=== PATIENT | female | born 1965 | race African-American/Black ===

== ENCOUNTER 2016-10-16 15:23 | Inpatient (IN) | payer MEDICAID ==
[2016-10-16] MEDS ORDERED: ONDANSETRON HCL INJ/PF 4 MG/2 ML SDV ONE (19:07)
--- NOTE | 2016-10-16 20:24 | ER Document Report ---
ED General - General Mode of Arrival: Medic Information source: Relative TRAVEL OUTSIDE OF THE [place] IN LAST 30 DAYS: No - HPI Onset: Other - see HPI notes Similar symptoms previously: No Recently seen / treated by doctor: No <VERENA BILLINGS - Last Filed: 10/17/16 04:08> <SABRA NEGRO - Last Filed: 10/17/16 04:15> - General Chief Complaint: Altered Mental Status Time Seen by Provider: 10/16/16 20:15 Notes: Patient is a 51 year old female presenting to the emergency department for altered mental status, lack of appetite and weakness. Patient has a history of colon cancer with a colostomy, type II diabetes mellitus, hypertension, and poor cognition. Patient's family state that the patient has not been able to eat well and has some yellowing of her eyes. Family is also concerned that the patient is very dehydrated. Patient has not been eating, drinking or able to take her meds for about 2 weeks. Patient had a bowel obstruction repair with her colostomy placed on 08/12/16 in [place]. Patient has since moved down here to be closer to family and she sees Dr. Burnham as her primary physician. Patient has been evaluated by Dr. Dangelo today who was also going to get in touch with Dr. Burnham as well. Patient is a FULL CODE and resides at [facility]. (VERENA BILLINGS) - Related Data Allergies/Adverse Reactions: No Known Allergies Allergy (Verified 10/16/16 23:59) Home Medications: Current Home Medications Aspirin [Aspirin 81 mg Chewable Tablet] 81 mg PO DAILY 10/17/16 [History] Diphenhydramine HCl [Benadryl 50 mg Capsule] 50 mg PO QPM PRN 10/17/16 [History] Divalproex Sodium [Depakote Er 250 Mg Tablet] 250 mg PO BID 10/17/16 [History] Ibuprofen 600 mg PO BID PRN 10/17/16 [History] Lurasidone HCl [Latuda] 80 mg PO Q12H 10/17/16 [History] Past Medical History - General Information source: Patient - Social History Smoking Status: Unknown if Ever Smoked Family History: None Patient has suicidal ideation: No Patient has homicidal ideation: No - Past Medical History Cardiac Medical History: Reports: Hx Hypertension Endocrine Medical History: Reports: Hx Diabetes Mellitus Type 2 Malignancy Medical History: Reports: Other - colon cancer with metastasis to the lung Musculoskeltal Medical History: Reports Other - chronic lower extremity edema Psychiatric Medical History: Reports: Hx Anxiety, Hx Depression, Hx Schizophrenia, Other - poor cognition Surgical Hx: Negative Past Surgical History: Reports: Hx Abdominal Surgery - bowel obstruction 08/12/16 , Hx Colostomy - 08/12/16 <VERENA BILLINGS - Last Filed: 10/17/16 04:08> Review of Systems - Review of Systems Constitutional: See HPI, Weakness EENT: See HPI Cardiovascular: No symptoms reported Respiratory: No symptoms reported Gastrointestinal: See HPI, Poor appetite, Poor fluid intake Genitourinary: No symptoms reported Female Genitourinary: No symptoms reported Musculoskeletal: No symptoms reported Skin: No symptoms reported Hematologic/Lymphatic: No symptoms reported Neurological/Psychological: See HPI, Weakness -: Yes All other systems reviewed and negative <VERENA BILLINGS - Last Filed: 10/17/16 04:08> Physical Exam - Vital signs Interpretation: Hypotensive - General General appearance: Alert, Other - appears icteric In distress: Mild - HEENT Head: Normocephalic, Atraumatic Eyes: Scleral icterus Pupils: PERRL Mucous membranes: Dry - Respiratory Respiratory status: No respiratory distress Chest status: Nontender Breath sounds: Normal Chest palpation: Normal - Cardiovascular Rhythm: Regular Heart sounds: Normal auscultation Murmur: No - Abdominal Inspection: Other - colostomy bag in place with output Distension: No distension Bowel sounds: Normal Tenderness: Nontender Organomegaly: No organomegaly - Back Back: Normal, Nontender - Extremities General upper extremity: Normal inspection, Normal ROM, Normal strength General lower extremity: Normal inspection, Normal ROM, Normal strength - Neurological Neuro grossly intact: Yes - slow to respond but at baseline Cognition: Normal Orientation: AAOx4 [place] Coma Scale Eye Opening: Spontaneous [place] Coma Scale Verbal: Oriented [place] Coma Scale Motor: Obeys Commands [place] Coma Scale Total: 15 - Skin Skin Temperature: Warm Skin Moisture: Dry <VERENA BILLINGS - Last Filed: 10/17/16 04:08> <SABRA NEGRO - Last Filed: 10/17/16 04:15> - Vital signs Vitals: Pulse Resp BP Pulse Ox 98 15 102/62 99 10/16/16 22:15 10/16/16 22:15 10/16/16 22:15 10/16/16 22:15 Temperature: 97.2 F Pulse: 90 Blood Pressure: 122/80 O2 Saturation: 98% RA Blood Glucose Level: 89 (VERENA BILLINGS) Course - Laboratory Result Diagrams: 10/16/16 18:30 10/16/16 18:30 - Consults Dr. Burnham Time consulted: 21:49 Consulted provider: will come to ER <VERENA BILLINGS - Last Filed: 10/17/16 04:08> - Laboratory Result Diagrams: 10/16/16 18:30 10/16/16 18:30 - Diagnostic Test Radiology reviewed: Image reviewed, Reports reviewed <SABRA NEGRO - Last Filed: 10/17/16 04:15> - Re-evaluation Re-evalutation: 10/16 Patient was discussed with Dr. Phan. Patient is hyperkalemic. Patient has acute renal failure and also elevated liver enzymes. Patient appears to be in multisystem organ failure and is likely not going to do well due to her underlying disease state. Dr. Phan at bedside. He has discussed the patient at length with the family and they have decided to make her DNR/DNI. Patient will be admitted. She is in fair condition at this time. (SABRA NEGRO) - Vital Signs Vital signs: Temp Pulse Resp BP Pulse Ox 93 14 98/71 L 100 10/17/16 03:13 10/17/16 00:04 10/17/16 00:04 10/17/16 00:04 - Laboratory Laboratory results interpreted by me: Normal coags. (VERENA BILLINGS) - Consults Dr. Burnham Reason for consultation: 10/16/16 21:[address] Burnham to discuss patient; he will come to the ED to evaluated and talk to patient/family. 10/16/16 22:20 Dr. Burnham is present in the department, he has talked with the family and the patient will be admitted. (VERENA BILLINGS) Critical Care Note - Critical Care Note Total time excluding time spent on procedures (mins): 45 - Dilatation and management of hypotension, hyperkalemia, multiple re-evaluations, counseling of family, coordination of admission <SABRA NEGRO - Last Filed: 10/17/16 04:15> Discharge <VERENA BILLINGS - Last Filed: 10/17/16 04:08> - Discharge Admitting Provider: [facility] Unit Admitted: Telemetry <SABRA NEGRO - Last Filed: 10/17/16 04:15> - Discharge Clinical Impression: Hyperkalemia, Multisystem organ failure Colon cancer Qualifiers: Colon location: unspecified part of colon Qualified Code(s): C18.9 - Malignant neoplasm of colon, unspecified Condition: Fair Disposition: ADMITTED INPATIENT Scribe Attestation: 10/17/16 04:15 I personally performed the services described in the documentation, reviewed and edited the documentation which was dictated to the scribe in my presence, and it accurately records my words and actions. (SABRA NEGRO) Scribe Documentation - Scribe Written by Scribe:: Sebastian Prince 10/16/16 21:17 acting as scribe for :: Niharika <VERENA BILLINGS - Last Filed: 10/17/16 04:08>
[2016-10-16] MEDS ORDERED: NORMAL SALINE 1000 ML 1,000 ML IV ONE (21:18)
[2016-10-16] MEDS ORDERED: DEXTROSE 50%-WATER 25 GM/50 ML DISP.SYRIN IV ONE (21:44)
[2016-10-16] MEDS ORDERED: INSULIN REG, HUMAN 100 UNIT/ML 3 ML VIAL (PYX) IV ONE (21:44)
[2016-10-16] MEDS ORDERED: CALCIUM GLUCONATE 1000 MG/10 ML INJ IV ONE (21:44)
[2016-10-17 00:26] LABS: THYROID STIMULATING HORMONE 3.25 uIU/mL (0.47-4.68)
[2016-10-17] MEDS ORDERED: DULOXETINE HCL 30 MG CAPSULE.DR PO ONE (05:15)
[2016-10-17 05:18] LABS: ALANINE AMINOTRANSFERASE 83 U/L (9-52); ALBUMIN 2.7 g/dL (3.5-5.0); ALKALINE PHOSPHATASE 630 U/L (38-126); ANION GAP 19 (5-19); ASPARTATE AMINO TRANSFERASE 279 U/L (14-36); BILIRUBIN,DIRECT 7.3 mg/dL (0.0-0.4); BILIRUBIN,TOTAL 8.2 mg/dL (0.2-1.3); CARBON DIOXIDE 14 mmol/L (22-30); CHLORIDE 95 mmol/L (98-107); GLUCOSE 139 mg/dL (75-110); POTASSIUM 5.3 mmol/L (3.6-5.0); SODIUM 128.1 mmol/L (137-145); TOTAL PROTEIN 7.5 g/dL (6.3-8.2)
[2016-10-17 05:28] LABS: CREATININE RESULT 3.19 mg/dL (0.52-1.25)
[2016-10-17 05:30] LABS: BLOOD UREA NITROGEN 137 mg/dL (7-20)
[2016-10-17] MEDS ORDERED: DULOXETINE HCL 20 MG CAPSULE.DR PO ONE ×2 (05:30→06:12)
[2016-10-17 05:40] LABS: HEMATOCRIT 35.8 % (36.0-47.0); HEMOGLOBIN 11.2 g/dL (12.0-15.5); HGB HCT DIFFERENCE -2.2; MEAN CORPUSCULAR HEMOGLOBIN 27.8 pg (27.0-33.4); MEAN CORPUSCULAR HGB CONC 31.4 g/dL (32.0-36.0); MEAN CORPUSCULAR VOLUME 88 fl (80-97); RED BLOOD COUNT 4.05 10^6/uL (3.72-5.28); RED CELL DISTRIBUTION WIDTH 22.4 % (11.5-14.0); WHITE BLOOD COUNT 16.3 10^3/uL (4.0-10.5)
[2016-10-17 05:44] LABS: BAND NEUTROPHILS % (MANUAL) 5 % (3-5); BASOPHILS % (MANUAL) 0 % (0-2); EOSINOPHILS % (MANUAL) 0 % (0-6); LYMPHOCYTES % (MANUAL) 7 % (13-45); TOTAL CELLS COUNTED 100
[2016-10-17 05:50] LABS: ANISOCYTOSIS 3+; BURR CELLS SLIGHT; OVALOCYTES SLIGHT; POIKILOCYTOSIS SLIGHT; SCHISTOCYTES SLIGHT; TARGET CELLS SLIGHT; TOXIC GRANULATION SLIGHT
[2016-10-17] MEDS: HEPARIN SOD (PORCINE) 5,000 UNIT/ML 1 ML SYRINGE SUBCUT SCH ×3 (06:32→21:02)
[2016-10-17 09:00] LABS: HEMATOCRIT 40.4 % (36.0-47.0); HEMOGLOBIN 12.9 g/dL (12.0-15.5); HGB HCT DIFFERENCE -1.7; MEAN CORPUSCULAR HEMOGLOBIN 28.2 pg (27.0-33.4); MEAN CORPUSCULAR HGB CONC 31.8 g/dL (32.0-36.0); MEAN CORPUSCULAR VOLUME 89 fl (80-97); RED BLOOD COUNT 4.56 10^6/uL (3.72-5.28); RED CELL DISTRIBUTION WIDTH 22.7 % (11.5-14.0); WHITE BLOOD COUNT 13.8 10^3/uL (4.0-10.5)
[2016-10-17 09:01] LABS: ANISOCYTOSIS 3+; BAND NEUTROPHILS % (MANUAL) 1 % (3-5); BASOPHILS % (MANUAL) 0 % (0-2); BURR CELLS 1+; EOSINOPHILS % (MANUAL) 1 % (0-6); LYMPHOCYTES % (MANUAL) 5 % (13-45); OVALOCYTES SLIGHT; POIKILOCYTOSIS 1+; TARGET CELLS 1+; TOTAL CELLS COUNTED 100
[2016-10-17 09:02] LABS: PLATELET CLUMPS PRESENT; POLYCHROMASIA SLIGHT
[2016-10-17] MEDS ORDERED: DEXTROSE 50%-WATER 25 GM/50 ML DISP.SYRIN IV PRN ×2 (11:03)
[2016-10-17] MEDS ORDERED: GLUCAGON,HUMAN RECOMB 1 MG INJ SUBCUT PRN (11:03)
[2016-10-17] MEDS ORDERED: DEXTROSE 40% GEL 15 GM TUBE PO PRN ×2 (11:03)
--- NOTE | 2016-10-17 11:14 | PDOC CONSULTATION ---
Consultation Consult Date: 10/17/16 Consult reason:: Evaluate for feeding tube History of Present Illness Admission Date/PCP: 10/16/16 22:40 ADIS PEARCE MD History of Present Illness: POORNIMA MISHRA is a 51 year old female with widely metastatic colon cancer status post colostomy 2 months ago. Now presenting with failure to thrive with poor appetite and severe dehydration. Oncology does not think that she is fit for chemotherapy. Family requests that a feeding tube for nutritional support. They do not wish to pursue only comfort measures at this time. Past Medical History Cardiac Medical History: Reports: Hypertension Endocrine Medical History: Reports: Diabetes Mellitus Type 2 Malignancy Medical History: Reports: Other - colon cancer with metastasis to the lung Musculoskeltal Medical History: Reports: Other - chronic lower extremity edema Psychiatric Medical History: Reports: Depression, Other - poor cognition Past Surgical History Past Surgical History: Reports: Colostomy - 08/12/16 Social History Smoking Status: Unknown if Ever Smoked Frequency of Alcohol Use: None Hx Recreational Drug Use: No Drugs: None Hx Prescription Drug Abuse: No Family History Family History: None Parental Family History Reviewed: No Children Family History Reviewed: No Sibling(s) Family History Reviewed.: No Medication/Allergy Home Medications: Aspirin [Aspirin 81 mg Chewable Tablet] 81 mg PO DAILY 10/17/16 Diphenhydramine HCl [Benadryl 50 mg Capsule] 50 mg PO HSP PRN 10/17/16 Divalproex Sodium 250 mg PO BID 10/17/16 Ibuprofen 600 mg PO BID 10/17/16 Lurasidone HCl [Latuda] 80 mg PO Q12 10/17/16 Allergies/Adverse Reactions: No Known Allergies Allergy (Verified 10/16/16 23:59) Physical Exam Vital Signs: Temp Pulse Resp BP Pulse Ox 97.3 F 89 16 103/56 L 100 10/17/16 08:00 10/17/16 08:00 10/17/16 08:00 10/17/16 08:00 10/17/16 08:00 Intake & Output 10/16/16 10/17/16 10/18/16 06:59 06:59 06:59 Intake Total 10 Balance 10 Weight 78.3 kg General appearance: PRESENT: no acute distress, other - Does not speak. Somewhat follows commands. Lethargic but arousable. Respiratory exam: PRESENT: decreased breath sounds - At bases. Cardiovascular exam: PRESENT: RRR GI/Abdominal exam: PRESENT: other - Firm mildly distended with ostomy that appears to be functioning well with stool and air in the colostomy bag. Diffuse abdominal tenderness without peritoneal signs. Firmness across her upper abdomen consistent with massive hepatomegaly. Results Laboratory Results: 10/17/16 04:45 10/17/16 04:45 10/16/16 10/16/16 10/17/16 23:04 23:04 04:45 WBC 16.3 H RBC 4.05 Hgb 11.2 L Hct 35.8 L MCV 88 MCH 27.8 MCHC 31.4 L RDW 22.4 H Plt Count 223 Seg Neutrophils % Not Reportable Lymphocytes % Not Reportable Monocytes % Not Reportable Eosinophils % Not Reportable Basophils % Not Reportable Absolute Neutrophils Not Reportable Absolute Lymphocytes Not Reportable Absolute Monocytes Not Reportable Absolute Eosinophils Not Reportable Absolute Basophils Not Reportable Sodium Potassium Chloride Carbon Dioxide Anion Gap BUN Creatinine Est GFR ( Amer) Est GFR (Non-Af Amer) Glucose Calcium Total Bilirubin AST ALT Alkaline Phosphatase Total Protein Albumin TSH 3.25 Free T4 1.53 Blood Type O POSITIVE Antibody Screen NEGATIVE 10/17/16 04:45 WBC RBC Hgb Hct MCV MCH MCHC RDW Plt Count Seg Neutrophils % Lymphocytes % Monocytes % Eosinophils % Basophils % Absolute Neutrophils Absolute Lymphocytes Absolute Monocytes Absolute Eosinophils Absolute Basophils Sodium 128.1 L Potassium 5.3 H Chloride 95 L Carbon Dioxide 14 L Anion Gap 19 BUN 137 H Creatinine 3.19 H Est GFR ( Amer) 18 L Est GFR (Non-Af Amer) 15 L Glucose 139 H Calcium 9.0 Total Bilirubin 8.2 H AST 279 H ALT 83 H Alkaline Phosphatase 630 H Total Protein 7.5 Albumin 2.7 L TSH Free T4 Blood Type Antibody Screen 10/17/16 00:46 Troponin I 0.024 Impressions: Chest X-Ray 10/16/16 20:15 IMPRESSION: Bilateral mass lesions as noted above suspicious for metastatic disease. Other findings as noted above Assessment & Plan - Diagnosis (1) Colon cancer Qualifiers: Colon location: unspecified part of colon Qualified Code(s): C18.9 - Malignant neoplasm of colon, unspecified Is this a current diagnosis for this admission?: YesPlan: Stage IV colon cancer with failure to thrive. Patient's family request feeding tube. Will obtain a abdominal pelvic CT scan to better assess the extent of her intra-abdominal disease before consideration of a feeding tube. Hospice care has not been started but may be very appropriate in this patient. Patient' s family not wanting to consider pure comfort measures only at this time. In the meantime will place her on IV fluids, recheck labs. Will place her on IV fluids. Patient is severely dehydrated.
[2016-10-17 11:36] LABS: PROTHROMBIN TIME 17.4 SEC (11.4-15.4)
[2016-10-17] MEDS ORDERED: NORMAL SALINE 500 ML IV PRN (12:25)
[2016-10-17 13:48] LABS: AMORPHOUS SEDIMENT,URINE TRACE /HPF; APPEARANCE,URINE CLOUDY; BILIRUBIN,URINE SMALL (NEGATIVE); GLUCOSE, URINE NEGATIVE (NEGATIVE); KETONES,URINE NEGATIVE (NEGATIVE); LEUKOCYTE ESTERASE,URINE NEGATIVE (NEGATIVE); NITRITE,URINE NEGATIVE (NEGATIVE); PROTEIN,URINE 100 mg/dL (NEGATIVE); URINE SPECIFIC GRAVITY 1.012
[2016-10-17] MEDS: NORMAL SALINE 1000 ML 1,000 ML IV PRN (14:35)
[2016-10-17 14:58] LABS: CREATINE KINASE MB 1.32 ng/mL (<4.55); TROPONIN I 0.024 ng/mL
[2016-10-17 14:59] LABS: BLOOD UREA NITROGEN 144 mg/dL (7-20); CALCIUM 9.5 mg/dL (8.4-10.2); GLUCOSE 90 mg/dL (75-110)
[2016-10-17 15:00] LABS: CREATININE RESULT 3.72 mg/dL (0.52-1.25)
[2016-10-17 15:01] LABS: CARBON DIOXIDE 16 mmol/L (22-30); CHLORIDE 90 mmol/L (98-107); POTASSIUM 6.2 mmol/L (3.6-5.0); SODIUM 126.4 mmol/L (137-145)
[2016-10-17 15:03] LABS: ALANINE AMINOTRANSFERASE 96 U/L (9-52); ALBUMIN 3.3 g/dL (3.5-5.0); ALKALINE PHOSPHATASE 825 U/L (38-126); ANION GAP 20 (5-19); ASPARTATE AMINO TRANSFERASE 331 U/L (14-36); BILIRUBIN,DIRECT 7.9 mg/dL (0.0-0.4); BILIRUBIN,TOTAL 8.9 mg/dL (0.2-1.3); TOTAL PROTEIN 8.7 g/dL (6.3-8.2)
[2016-10-17 15:04] LABS: CREATINE KINASE 347 U/L (30-135)
--- NOTE | 2016-10-17 19:35 | PDOC H&P ---
History of Present Illness Admission Date/PCP: 10/16/16 22:40 ADIS PEARCE MD History of Present Illness: He is a 51-year-old with stage IV colon cancer, with metastases involving the lungs, she recently had a colectomy with colostomy bag in place she was transferred from the hospital to [facility] for rehabilitation patient is not able to communicate effectively, she has not been eating, attempt was made by family to have PEG tube inserted but GI felt that because of the enlarged liver due to metastatic disease PEG tube could not be placed. In the emergency room she was evaluated she was found to have acute kidney failure with hyperkalemia and hyponatremia. I had a long discussion with the patient father and brother about prognosis, she has a very poor prognosis I advised the family that patient should be DO NOT RESUSCITATE status the family is in agreement. Family wants patient to have a feeding tube inserted by the surgeon. I suggested hospice option to this family but I did not get any response from the family. Past Medical History Cardiac Medical History: Reports: Hypertension Endocrine Medical History: Reports: Diabetes Mellitus Type 2 Malignancy Medical History: Reports: Colorectal Cancer - stage 4 colon cancer, Other - colon cancer with metastasis to the lung Musculoskeltal Medical History: Reports: Other - chronic lower extremity edema Psychiatric Medical History: Reports: Depression, Other - poor cognition Past Surgical History Past Surgical History: Reports: Colostomy - 08/12/16 Social History Smoking Status: Unknown if Ever Smoked Frequency of Alcohol Use: None Hx Recreational Drug Use: No Drugs: None Hx Prescription Drug Abuse: No Family History Family History: None Parental Family History Reviewed: Yes Children Family History Reviewed: Yes Sibling(s) Family History Reviewed.: Yes Medication/Allergy Home Medications: Aspirin [Aspirin 81 mg Chewable Tablet] 81 mg PO DAILY 10/17/16 Diphenhydramine HCl [Benadryl 50 mg Capsule] 50 mg PO HSP PRN 10/17/16 Divalproex Sodium 250 mg PO BID 10/17/16 Ibuprofen 600 mg PO BID 10/17/16 Lurasidone HCl [Latuda] 80 mg PO Q12 10/17/16 Allergies/Adverse Reactions: No Known Allergies Allergy (Verified 10/16/16 23:59) Review of Systems ROS unobtainable: Due to mental status Physical Exam Vital Signs: Temp Pulse Resp BP Pulse Ox 97.8 F 89 18 97/54 L 100 10/17/16 16:00 10/17/16 16:00 10/17/16 16:00 10/17/16 16:00 10/17/16 16:00 Intake & Output 10/16/16 10/17/16 10/18/16 06:59 06:59 06:59 Intake Total 10 1100 Output Total 100 Balance 10 1000 Weight 78.3 kg General appearance: PRESENT: mild distress Eye exam: PRESENT: PERRLA Respiratory exam: PRESENT: clear to auscultation barney Cardiovascular exam: PRESENT: +S1, +S2 GI/Abdominal exam: PRESENT: soft, other - Colostomy bag in place Neurological exam: PRESENT: alert Results Laboratory Results: 10/17/16 04:45 10/17/16 04:45 10/16/16 10/16/16 10/17/16 23:04 23:04 04:45 WBC 16.3 H RBC 4.05 Hgb 11.2 L Hct 35.8 L MCV 88 MCH 27.8 MCHC 31.4 L RDW 22.4 H Plt Count 223 Seg Neutrophils % Not Reportable Lymphocytes % Not Reportable Monocytes % Not Reportable Eosinophils % Not Reportable Basophils % Not Reportable Absolute Neutrophils Not Reportable Absolute Lymphocytes Not Reportable Absolute Monocytes Not Reportable Absolute Eosinophils Not Reportable Absolute Basophils Not Reportable Sodium Potassium Chloride Carbon Dioxide Anion Gap BUN Creatinine Est GFR ( Amer) Est GFR (Non-Af Amer) Glucose Calcium Total Bilirubin AST ALT Alkaline Phosphatase Total Protein Albumin TSH 3.25 Free T4 1.53 Blood Type O POSITIVE Antibody Screen NEGATIVE 10/17/16 04:45 WBC RBC Hgb Hct MCV MCH MCHC RDW Plt Count Seg Neutrophils % Lymphocytes % Monocytes % Eosinophils % Basophils % Absolute Neutrophils Absolute Lymphocytes Absolute Monocytes Absolute Eosinophils Absolute Basophils Sodium 128.1 L Potassium 5.3 H Chloride 95 L Carbon Dioxide 14 L Anion Gap 19 BUN 137 H Creatinine 3.19 H Est GFR ( Amer) 18 L Est GFR (Non-Af Amer) 15 L Glucose 139 H Calcium 9.0 Total Bilirubin 8.2 H AST 279 H ALT 83 H Alkaline Phosphatase 630 H Total Protein 7.5 Albumin 2.7 L TSH Free T4 Blood Type Antibody Screen 10/17/16 00:46 Troponin I 0.024 Impressions: Chest X-Ray 10/16/16 20:15 IMPRESSION: Bilateral mass lesions as noted above suspicious for metastatic disease. Other findings as noted above Abdomen/Pelvis CT 10/17/16 00:00 IMPRESSION: 1. Numerous mass lesions are identified in the lower lung purcell concerning for underlying metastasis. 2. R is altered attenuation seen throughout the liver concerning for possible liver metastasis though evaluation is somewhat limited on this study without IV contrast. 3. There there are soft tissue nodule seen along the left peritoneal surface as detailed above concerning for peritoneal implants/metastasis. There also appears to be masslike lesion seen in the abdomen adjacent to the stomach in the lesser sac region present adjacent surgical clips this concerning for possible mass. 4. Colostomy noted in the right upper quadrant. Langston's pouch noted. Assessment & Plan - Diagnosis (1) Acute kidney injury Is this a current diagnosis for this admission?: YesPlan: She is admitted,she will be treated with IV fluid she has not been eating or drinking the acute kidney injury is most likely prerenal (2) Hyperkalemia Is this a current diagnosis for this admission?: Yes (3) Malignant neoplasm of left colon Is this a current diagnosis for this admission?: YesPlan: She has metastatic disease with lung involvement, very poor prognosis
--- NOTE | 2016-10-17 19:40 | PDOC PROGRESS REPORT ---
Subjective Progress Note for:: 10/17/16 Subjective:: She was seen by the surgeon this morning, CAT scan of the abdomen and pelvis with ordered, showed multiple mass lesions in the lower lung consistent with metastases there are multifocal areas of altered attenuation throughout the liver. Patient was seen by the bedside family was in the room with prognosis still remains very poor, she was seen by the oncologist. Physical Exam Vital Signs: Temp Pulse Resp BP Pulse Ox 97.8 F 89 18 97/54 L 100 10/17/16 16:00 10/17/16 16:00 10/17/16 16:00 10/17/16 16:00 10/17/16 16:00 Intake & Output 10/16/16 10/17/16 10/18/16 06:59 06:59 06:59 Intake Total 10 1100 Output Total 100 Balance 10 1000 Weight 78.3 kg General appearance: PRESENT: no acute distress Eye exam: PRESENT: PERRLA Respiratory exam: PRESENT: clear to auscultation barney Cardiovascular exam: PRESENT: +S1, +S2 GI/Abdominal exam: PRESENT: soft Neurological exam: PRESENT: alert Results Laboratory Results: 10/17/16 04:45 10/17/16 04:45 10/16/16 10/16/16 10/17/16 23:04 23:04 04:45 WBC 16.3 H RBC 4.05 Hgb 11.2 L Hct 35.8 L MCV 88 MCH 27.8 MCHC 31.4 L RDW 22.4 H Plt Count 223 Seg Neutrophils % Not Reportable Lymphocytes % Not Reportable Monocytes % Not Reportable Eosinophils % Not Reportable Basophils % Not Reportable Absolute Neutrophils Not Reportable Absolute Lymphocytes Not Reportable Absolute Monocytes Not Reportable Absolute Eosinophils Not Reportable Absolute Basophils Not Reportable Sodium Potassium Chloride Carbon Dioxide Anion Gap BUN Creatinine Est GFR ( Amer) Est GFR (Non-Af Amer) Glucose Calcium Total Bilirubin AST ALT Alkaline Phosphatase Total Protein Albumin TSH 3.25 Free T4 1.53 Blood Type O POSITIVE Antibody Screen NEGATIVE 10/17/16 04:45 WBC RBC Hgb Hct MCV MCH MCHC RDW Plt Count Seg Neutrophils % Lymphocytes % Monocytes % Eosinophils % Basophils % Absolute Neutrophils Absolute Lymphocytes Absolute Monocytes Absolute Eosinophils Absolute Basophils Sodium 128.1 L Potassium 5.3 H Chloride 95 L Carbon Dioxide 14 L Anion Gap 19 BUN 137 H Creatinine 3.19 H Est GFR ( Amer) 18 L Est GFR (Non-Af Amer) 15 L Glucose 139 H Calcium 9.0 Total Bilirubin 8.2 H AST 279 H ALT 83 H Alkaline Phosphatase 630 H Total Protein 7.5 Albumin 2.7 L TSH Free T4 Blood Type Antibody Screen 10/17/16 00:46 Troponin I 0.024 Impressions: Chest X-Ray 10/16/16 20:15 IMPRESSION: Bilateral mass lesions as noted above suspicious for metastatic disease. Other findings as noted above Abdomen/Pelvis CT 10/17/16 00:00 IMPRESSION: 1. Numerous mass lesions are identified in the lower lung purcell concerning for underlying metastasis. 2. R is altered attenuation seen throughout the liver concerning for possible liver metastasis though evaluation is somewhat limited on this study without IV contrast. 3. There there are soft tissue nodule seen along the left peritoneal surface as detailed above concerning for peritoneal implants/metastasis. There also appears to be masslike lesion seen in the abdomen adjacent to the stomach in the lesser sac region present adjacent surgical clips this concerning for possible mass. 4. Colostomy noted in the right upper quadrant. Langston's pouch noted. Assessment & Plan - Diagnosis (1) Acute kidney injury Is this a current diagnosis for this admission?: YesPlan: She will continue hydration with fluid (2) Hyperkalemia Is this a current diagnosis for this admission?: Yes (3) Malignant neoplasm of left colon Is this a current diagnosis for this admission?: Yes (4) Hyponatremia Is this a current diagnosis for this admission?: Yes
--- NOTE | 2016-10-17 20:34 | CONSULTATION REPORT E ---
Consultation Report NAME: POORNIMA MISHRA : 1965 AGE: 51Y DATE: 10/17/2016 414 A TO: LEANA STEVENS M.D. FROM: TULIO BATISTA M.D. Requesting Physician REASON FOR REFERRAL: Colon cancer. The patient is a 51-year-old woman who unfortunately has stage IV colon cancer. She presented mid July at [facility]. She was found while she was in the hospital to have an obstructing mass along the splenic flexure and descending colon with abdominal distention. She was taken to surgery, and it appears that she underwent resection of the transverse colon mass, transverse colostomy, and she was in the hospital for a while and discharged home to an nursing facility. She had presented then with nausea, vomiting, poor oral intake, and abdominal distention. She was admitted last night from the skilled nursing with continued inability to eat, lethargy, and generally not feeling well. The plan was for her to possibly have a PEG tube placed for feeding. PAST MEDICAL HISTORY: Past medical history includes a history of: 1. Diabetes. 2. High blood pressure. 3. Mental illness. 4. Possible panic attacks or schizophrenia. ALLERGIES: PENICILLIN. SOCIAL HISTORY: She never smoked. She is single. FAMILY HISTORY: Father is alive. Mother . PHYSICAL EXAMINATION: GENERAL: On exam, she is a middle-aged woman. She was lying in bed and not answering questions. ABDOMEN: She has reduced bowel sounds. LABORATORY DATA: Labs 10/16/2016: White count is 16.3; hemoglobin is 11.2; platelet count is 223. Sodium is 128, potassium 5.3. BUN is 137; creatinine is 3.1. Alkaline phosphatase 630, AST 279, ALT 83. The chest x-ray done 10/16/2016 shows bilateral mass lesions in the lungs. She had a CT scan of the abdomen done today, results pending. IMPRESSION AND PLAN: The patient is a 51-year-old woman who unfortunately has stage IV colon cancer. It appears that since surgery she has not completely recovered. She had a family member by the bedside. She was unable to give me a history; however, I was able to extrapolate from the medical records and also from the family member the history and how she has been doing. I will review the results of the CT scan. It appears that her current state is most probably secondary to a combination of the cancer and also the fact that she has been sick for a while. I agree with the plan to hydrate and correct her electrolytes. I explained to the family member that if it is the cancer that is making her so debilitated chemotherapy was the treatment that could help. Unfortunately, stage IV colon cancer is curable; however, palliation can be given with prolongation of survival using oxaliplatin or irinotecan-based regimens. Both regimens require continuous infusion of 5-FU with oxaliplatin or irinotecan. Both regimens would require intravenous central line access. This could be in the form of a Port-A-Cath which would be more desirable compared to a central line. If there are no contraindications to a Port-A-Cath, I would recommend obtaining a Port-A-Cath this weekend. If her electrolytes improve over the weekend, then next week she can be started on FOLFOX with the first 2 given while she is in the hospital. This is a well tolerated regimen. I will request a CEA. I will discuss this also with other family members who are not present at the bedside. I thank you for this consultation and allowing me to participate in her care. DICTATING PHYSICIAN: LEANA STEVENS M.D. [id number] PHY#: [id number] ID: [id number] JOB#: [id number] ACCT: [id number] cc:LEANA STEVENS M.D. >
--- NOTE | 2016-10-17 20:43 | PDOC PROGRESS REPORT ---
Physical Exam Vital Signs: Temp Pulse Resp BP Pulse Ox 97.8 F 81 18 97/54 L 100 10/17/16 16:00 10/17/16 19:00 10/17/16 16:00 10/17/16 16:00 10/17/16 16:00 Intake & Output 10/16/16 10/17/16 10/18/16 06:59 06:59 06:59 Intake Total 10 1100 Output Total 100 Balance 10 1000 Weight 78.3 kg Results Laboratory Results: 10/17/16 04:45 10/17/16 04:45 10/16/16 10/16/16 10/17/16 23:04 23:04 04:45 WBC 16.3 H RBC 4.05 Hgb 11.2 L Hct 35.8 L MCV 88 MCH 27.8 MCHC 31.4 L RDW 22.4 H Plt Count 223 Seg Neutrophils % Not Reportable Lymphocytes % Not Reportable Monocytes % Not Reportable Eosinophils % Not Reportable Basophils % Not Reportable Absolute Neutrophils Not Reportable Absolute Lymphocytes Not Reportable Absolute Monocytes Not Reportable Absolute Eosinophils Not Reportable Absolute Basophils Not Reportable Sodium Potassium Chloride Carbon Dioxide Anion Gap BUN Creatinine Est GFR ( Amer) Est GFR (Non-Af Amer) Glucose Calcium Total Bilirubin AST ALT Alkaline Phosphatase Total Protein Albumin TSH 3.25 Free T4 1.53 Blood Type O POSITIVE Antibody Screen NEGATIVE 10/17/16 04:45 WBC RBC Hgb Hct MCV MCH MCHC RDW Plt Count Seg Neutrophils % Lymphocytes % Monocytes % Eosinophils % Basophils % Absolute Neutrophils Absolute Lymphocytes Absolute Monocytes Absolute Eosinophils Absolute Basophils Sodium 128.1 L Potassium 5.3 H Chloride 95 L Carbon Dioxide 14 L Anion Gap 19 BUN 137 H Creatinine 3.19 H Est GFR ( Amer) 18 L Est GFR (Non-Af Amer) 15 L Glucose 139 H Calcium 9.0 Total Bilirubin 8.2 H AST 279 H ALT 83 H Alkaline Phosphatase 630 H Total Protein 7.5 Albumin 2.7 L TSH Free T4 Blood Type Antibody Screen 10/17/16 00:46 Troponin I 0.024 Impressions: Chest X-Ray 10/16/16 20:15 IMPRESSION: Bilateral mass lesions as noted above suspicious for metastatic disease. Other findings as noted above Abdomen/Pelvis CT 10/17/16 00:00 IMPRESSION: 1. Numerous mass lesions are identified in the lower lung purcell concerning for underlying metastasis. 2. R is altered attenuation seen throughout the liver concerning for possible liver metastasis though evaluation is somewhat limited on this study without IV contrast. 3. There there are soft tissue nodule seen along the left peritoneal surface as detailed above concerning for peritoneal implants/metastasis. There also appears to be masslike lesion seen in the abdomen adjacent to the stomach in the lesser sac region present adjacent surgical clips this concerning for possible mass. 4. Colostomy noted in the right upper quadrant. Langston's pouch noted. Assessment & Plan - Diagnosis (1) Colon cancer Qualifiers: Colon location: unspecified part of colon Qualified Code(s): C18.9 - Malignant neoplasm of colon, unspecified Is this a current diagnosis for this admission?: YesPlan: reviewed CT. massive tumor filled liver with compression of stomach. I do not think a gastrostomy tube is technically possible but feeding jejunostomy is possible is she does not have carcinomatosis. I have explained to the family the risks of an operation in this cachetic pt with metastatic colon cancer and huge tumor burden. There is a significant risk of being unable to do a feeding jejunostomy as well as cardiopulmonary and wound complications. Another option would be a nasoenteric tube (corpak) that has little risk. Final option is hospice care with no feeding tube. Pt's family to decide. In meantime, pt needs to be fluid resusitated.
[2016-10-17] MEDS ORDERED: DIPHENHYDRAMINE HCL 50 MG/ML VIAL ONE (22:31)
[2016-10-18] MEDS: HEPARIN SOD (PORCINE) 5,000 UNIT/ML 1 ML SYRINGE SUBCUT SCH ×3 (05:06→21:05)
[2016-10-18] MEDS: DIPHENHYDRAMINE HCL 50 MG/ML VIAL IV PRN (06:01)
[2016-10-18] MEDS: DULOXETINE HCL 20 MG CAPSULE.DR PO SCH (09:15)
[2016-10-18] MEDS: DULOXETINE HCL 30 MG CAPSULE.DR PO SCH (09:15)
[2016-10-18 09:20] LABS: HEMATOCRIT 33.9 % (36.0-47.0); HEMOGLOBIN 10.7 g/dL (12.0-15.5); HGB HCT DIFFERENCE -1.8; MEAN CORPUSCULAR HEMOGLOBIN 27.8 pg (27.0-33.4); MEAN CORPUSCULAR HGB CONC 31.4 g/dL (32.0-36.0); MEAN CORPUSCULAR VOLUME 88 fl (80-97); RED BLOOD COUNT 3.84 10^6/uL (3.72-5.28); WHITE BLOOD COUNT 15.8 10^3/uL (4.0-10.5)
[2016-10-18 10:06] LABS: BAND NEUTROPHILS % (MANUAL) 3 % (3-5); BASOPHILS % (MANUAL) 0 % (0-2); EOSINOPHILS % (MANUAL) 0 % (0-6); LYMPHOCYTES % (MANUAL) 1 % (13-45); TOTAL CELLS COUNTED 100
[2016-10-18 10:19] LABS: ANISOCYTOSIS 3+; HYPOCHROMASIA SLIGHT
[2016-10-18 10:20] LABS: BURR CELLS SLIGHT; POIKILOCYTOSIS 1+; ROULEAUX 2+; TARGET CELLS 1+; TOXIC VACUOLATION PRESENT
--- NOTE | 2016-10-18 11:09 | PROGRESS NOTE E ---
Progress Note NAME: POORNIMA MISHRA : 1965 AGE: 51Y DATE: 10/18/2016 ROOM: 414 The patient has stage IV colon CA and the liver could be palpated almost at the area of the umbilicus. Her colostomy appears seems to be functioning well. The big question is whether we should proceed with putting a feeding gastrotomy or jejunostomy tube. We are still waiting for the family to get back to us and probably the best thing is just to put in a Dobhoff feeding catheter. DICTATING PHYSICIAN: WILFREDO PABON M.D. [id number] PHY#: [id number] ID: [id number] JOB#: [id number] ACCT: [id number] cc: >
[2016-10-18] MEDS: MORPHINE SULFATE 10 MG/ML INJ IV PRN ×2 (11:49→21:04)
[2016-10-18 18:30] LABS: ALANINE AMINOTRANSFERASE 75 U/L (9-52); ALBUMIN 2.9 g/dL (3.5-5.0); ALKALINE PHOSPHATASE 696 U/L (38-126); ANION GAP 18 (5-19); ASPARTATE AMINO TRANSFERASE 256 U/L (14-36); BILIRUBIN,DIRECT 7.8 mg/dL (0.0-0.4); BILIRUBIN,TOTAL 8.8 mg/dL (0.2-1.3); CALCIUM 9.5 mg/dL (8.4-10.2); CARBON DIOXIDE 15 mmol/L (22-30); CHLORIDE 102 mmol/L (98-107); CREATININE RESULT 2.79 mg/dL (0.52-1.25); GLUCOSE 74 mg/dL (75-110); POTASSIUM 5.2 mmol/L (3.6-5.0); SODIUM 134.8 mmol/L (137-145); TOTAL PROTEIN 7.7 g/dL (6.3-8.2)
[2016-10-18 18:38] LABS: BLOOD UREA NITROGEN 121 mg/dL (7-20)
[2016-10-18] MEDS ORDERED: LIDOCAINE 0.5% INJ-PF (5 MG/ML) 50 ML SDV ONE (20:00)
[2016-10-18] MEDS ORDERED: PHARMACY COMMUNICATION ORDER MC NR (20:45)
[2016-10-18] MEDS ORDERED: ONDANSETRON HCL INJ/PF 4 MG/2 ML SDV ONE (21:00)
[2016-10-18] MEDS ORDERED: ONDANSETRON HCL INJ/PF 4 MG/2 ML SDV IV PRN (21:08)
--- NOTE | 2016-10-18 21:25 | PROGRESS NOTE E ---
Progress Note NAME: POORNIMA MISHRA : 1965 AGE: 51Y DATE: 10/18/2016 ROOM: 414 I had a long discussion with the patient, her brother, and her father in the room regarding plans for feeding. They claim that the patient is able to drink fluids relatively well. The fact that it is going to be difficult or almost impossible to put a gastrostomy or a jejunostomy tube, I think it is best to hold off and try to feed her with Ensure or nutrition p.o. The patient appears to understand what the plans are and she seems to be agreeable because she refuses Dobbhoff feeding tube at this time. Meantime the nurse is unable to get peripheral IV in both arms and, therefore, a central line was placed. We will observe the patient closely as far as taking p.o. nutrition. She will have triple lumen central line for IV medications and to draw blood. DICTATING PHYSICIAN: WILFREDO PABON M.D. [id number] PHY#: [id number] ID: [id number] JOB#: [id number] ACCT: [id number] cc: >
--- NOTE | 2016-10-18 21:45 | PDOC PROGRESS REPORT ---
Subjective Progress Note for:: 10/18/16 Subjective:: Patient was seen by the bedside, she has metastatic colon cancer, admitted because of acute kidney failure/ acute kidney injury.The nursing staff said patient refused IV infusion she was seen by the surgeon regarding alternative means of nutrition, the surgeon is contemplating feeding tube placement rather than ileostomy or gastrostomy tube. Physical Exam Vital Signs: Temp Pulse Resp BP Pulse Ox 97.4 F 94 16 95/56 L 100 10/18/16 16:47 10/18/16 16:47 10/18/16 16:47 10/18/16 16:47 10/18/16 16:47 Intake & Output 10/17/16 10/18/16 10/19/16 06:59 06:59 06:59 Intake Total 10 3939 900 Output Total 50 900 Balance -40 3039 900 Weight 78.3 kg 79.1 kg General appearance: PRESENT: thin Eye exam: PRESENT: PERRLA Respiratory exam: PRESENT: clear to auscultation barney Cardiovascular exam: PRESENT: +S1, +S2 GI/Abdominal exam: PRESENT: soft Results Laboratory Results: 10/18/16 08:53 10/18/16 17:36 10/18/16 10/18/16 10/18/16 08:53 08:53 17:36 WBC 15.8 H RBC 3.84 Hgb 10.7 L Hct 33.9 L MCV 88 MCH 27.8 MCHC 31.4 L RDW 22.0 H Plt Count 188 Seg Neutrophils % Not Reportable Lymphocytes % Not Reportable Monocytes % Not Reportable Eosinophils % Not Reportable Basophils % Not Reportable Absolute Neutrophils Not Reportable Absolute Lymphocytes Not Reportable Absolute Monocytes Not Reportable Absolute Eosinophils Not Reportable Absolute Basophils Not Reportable Sodium Cancelled 134.8 L Potassium Cancelled 5.2 H Chloride Cancelled 102 Carbon Dioxide Cancelled 15 L Anion Gap Cancelled 18 BUN Cancelled 121 H Creatinine Cancelled 2.79 H Est GFR ( Amer) Cancelled 21 L Est GFR (Non-Af Amer) Cancelled 18 L Glucose Cancelled 74 L Calcium Cancelled 9.5 Total Bilirubin Cancelled 8.8 H AST Cancelled 256 H ALT Cancelled 75 H Alkaline Phosphatase Cancelled 696 H Total Protein Cancelled 7.7 Albumin Cancelled 2.9 L 10/17/16 00:46 Troponin I 0.024 Impressions: Abdomen/Pelvis CT 10/17/16 00:00 IMPRESSION: 1. Numerous mass lesions are identified in the lower lung purcell concerning for underlying metastasis. 2. R is altered attenuation seen throughout the liver concerning for possible liver metastasis though evaluation is somewhat limited on this study without IV contrast. 3. There there are soft tissue nodule seen along the left peritoneal surface as detailed above concerning for peritoneal implants/metastasis. There also appears to be masslike lesion seen in the abdomen adjacent to the stomach in the lesser sac region present adjacent surgical clips this concerning for possible mass. 4. Colostomy noted in the right upper quadrant. Langston's pouch noted. Chest X-Ray 10/18/16 00:00 IMPRESSION: INTERVAL PLACEMENT RIGHT SUBCLAVIAN VENOUS CATHETER TERMINATING DEEP WITHIN THE RIGHT ATRIUM. RECOMMEND PULLING BACK 5 6 CM. STABLE APPEARANCE OF BILATERAL LUNG MASSES AGAIN CONCERNING FOR METASTATIC DISEASE. Assessment & Plan - Diagnosis (1) Acute kidney injury Is this a current diagnosis for this admission?: Yes (2) Hyperkalemia Is this a current diagnosis for this admission?: Yes (3) Malignant neoplasm of left colon Is this a current diagnosis for this admission?: Yes (4) Hyponatremia Is this a current diagnosis for this admission?: Yes
[2016-10-19] MEDS: MORPHINE SULFATE 10 MG/ML INJ IV PRN ×2 (01:16→22:23)
[2016-10-19] MEDS: DIPHENHYDRAMINE HCL 50 MG/ML VIAL IV PRN (02:59)
[2016-10-19] MEDS: HEPARIN SOD (PORCINE) 5,000 UNIT/ML 1 ML SYRINGE SUBCUT SCH ×3 (05:14→21:54)
--- NOTE | 2016-10-19 11:04 | PDOC PROGRESS REPORT ---
Subjective Progress Note for:: 10/19/16 Subjective:: Patient was admitted for the acute renal failure and metastatic colon cancer and the jaundice. According to the nursing staff patient is currently DNR and DNI and waiting for the comfort care decisions. Patient's refused to get the ultrasound yesterday. Patient have a central line placement yesterday which is to be a just by the surgery. Physical Exam Vital Signs: Temp Pulse Resp BP Pulse Ox 98.3 F 92 18 97/56 L 100 10/19/16 07:22 10/19/16 07:22 10/19/16 07:22 10/19/16 07:22 10/19/16 07:22 Intake & Output 10/18/16 10/19/16 10/20/16 06:59 06:59 06:59 Intake Total 3939 1550 Output Total 900 0 Balance 3039 1550 Weight 79.1 kg 81.1 kg General appearance: PRESENT: no acute distress Eye exam: PRESENT: scleral icterus Mouth exam: PRESENT: dry mucosa Respiratory exam: PRESENT: clear to auscultation barney GI/Abdominal exam: PRESENT: normal bowel sounds Neurological exam: PRESENT: alert, awake Psychiatric exam: PRESENT: anxious Results Laboratory Results: 10/18/16 08:53 10/18/16 17:36 10/18/16 17:36 Sodium 134.8 L Potassium 5.2 H Chloride 102 Carbon Dioxide 15 L Anion Gap 18 BUN 121 H Creatinine 2.79 H Est GFR ( Amer) 21 L Est GFR (Non-Af Amer) 18 L Glucose 74 L Calcium 9.5 Total Bilirubin 8.8 H AST 256 H ALT 75 H Alkaline Phosphatase 696 H Total Protein 7.7 Albumin 2.9 L 10/17/16 00:46 Troponin I 0.024 Impressions: Abdomen/Pelvis CT 10/17/16 00:00 IMPRESSION: 1. Numerous mass lesions are identified in the lower lung purcell concerning for underlying metastasis. 2. R is altered attenuation seen throughout the liver concerning for possible liver metastasis though evaluation is somewhat limited on this study without IV contrast. 3. There there are soft tissue nodule seen along the left peritoneal surface as detailed above concerning for peritoneal implants/metastasis. There also appears to be masslike lesion seen in the abdomen adjacent to the stomach in the lesser sac region present adjacent surgical clips this concerning for possible mass. 4. Colostomy noted in the right upper quadrant. Langston's pouch noted. Chest X-Ray 10/18/16 00:00 IMPRESSION: INTERVAL PLACEMENT RIGHT SUBCLAVIAN VENOUS CATHETER TERMINATING DEEP WITHIN THE RIGHT ATRIUM. RECOMMEND PULLING BACK 5 6 CM. STABLE APPEARANCE OF BILATERAL LUNG MASSES AGAIN CONCERNING FOR METASTATIC DISEASE. Assessment & Plan - Diagnosis (1) Acute kidney injury Is this a current diagnosis for this admission?: YesPlan: Continues to IV fluid (2) Colon cancer Qualifiers: Colon location: unspecified part of colon Qualified Code(s): C18.9 - Malignant neoplasm of colon, unspecified Is this a current diagnosis for this admission?: YesPlan: Pretty much end-stage disease (3) History of colon cancer, stage IV Is this a current diagnosis for this admission?: Yes (4) Hyperkalemia Is this a current diagnosis for this admission?: YesPlan: stable (5) Multisystem organ failure Is this a current diagnosis for this admission?: YesPlan: poor prgonosis - Time Time Spent with patient: 15-24 minutes Medications reviewed and adjusted accordingly: Yes Anticipated discharge: Other Within: Other - Inpatient Certification Medical Necessity: Significant Comorbidiites Make Outpatient Treatment Too Risky Post Hospital Care: D/C Quality Assurance Intern Documentation - Plan Summary Plan Summary: poor prgnosis
[2016-10-19] MEDS: DULOXETINE HCL 20 MG CAPSULE.DR PO SCH (11:47)
[2016-10-19] MEDS: DULOXETINE HCL 30 MG CAPSULE.DR PO SCH (11:47)
--- NOTE | 2016-10-19 13:27 | OPERATIVE REPORT E ---
Operative Report NAME: POORNIMA MISHRA : 1965 AGE: 51Y DATE OF SURGERY: 10/18/2016 ROOM: 414 PREOPERATIVE DIAGNOSIS: Poor peripheral vein for IV access. POSTOPERATIVE DIAGNOSIS: Poor peripheral vein for IV access. PROCEDURE: Placement of central line through the right subclavian vein. SURGEON: WILFREDO PABON M.D. DESCRIPTION OF PROCEDURE: The patient was placed in a Trendelenburg position and the right neck and the clavicle areas were then prepped and draped in the usual sterile fashion. Local anesthesia was infiltrated at the right low clavicular area. The right subclavian vein was then punctured and a guidewire placed through the needle into the superior vena cava. The needle was removed and the puncture site was then enlarged with an #11 blade. Next, a dilator was then passed through the guidewire towards the punctured area towards the superior vena cava. The dilator was removed and a triple-lumen catheter inserted through the guidewire towards the superior vena cava. About 17 cm of the catheter was placed through the skin. The guidewire was removed and all the three-way catheter sites were then aspirated of blood quite easily and injected with saline easily. The catheter was then anchored to the skin with 3-0 silk. A Biopatch was then placed at the entry site and a transparent dressing placed over the catheter and Biopatch. The patient tolerated the procedure well. A chest x-ray will be performed for placement. DICTATING PHYSICIAN: WILFREDO PABON M.D. [id number] PHY#: [id number] ID: [id number] JOB#: [id number] ACCT: [id number] cc:WILFREDO PABON M.D. >
--- NOTE | 2016-10-19 15:19 | PROGRESS NOTE E ---
Progress Note NAME: POORNIMA MISHRA : 1965 AGE: 51Y DATE: 10/19/2016 ROOM: 414 I put a central line in this patient last night. After a long talk with her brother and father, the plan is to hold off on the feeding tube for now since the patient is willing to take liquids p.o. at this time. Last night, she complained of pain in both heels and noted to have starting pressure sores in both heels and I told the nurse to prop both legs on a pillow to prevent the heel from having pressure on the bed. This morning, she remains afebrile and starting to take some p.o. fluids. She had a sip of water in front of me. Her abdomen is soft and some tenderness around the colostomy site. The plan is to continue her on a liquid diet as long as she can and if she is not really taking enough liquids, then maybe placement of Dobhoff catheter may be indicated. Also try to keep her comfortable. DICTATING PHYSICIAN: WILFREDO PABON M.D. [id number] PHY#: [id number] ID: [id number] JOB#: [id number] ACCT: [id number] cc: >
[2016-10-19] MEDS ORDERED: LIDOCAINE 0.5% INJ-PF (5 MG/ML) 50 ML SDV ONE (18:23)
[2016-10-19] MEDS ORDERED: LIDOCAINE 0.5% INJ-PF (5 MG/ML) 50 ML SDV INJ ONE (19:30)
[2016-10-19] MEDS: NORMAL SALINE 1000 ML 1,000 ML IV PRN (21:29)
[2016-10-20] MEDS: HEPARIN SOD (PORCINE) 5,000 UNIT/ML 1 ML SYRINGE SUBCUT SCH ×3 (05:10→21:16)
[2016-10-20] MEDS: NORMAL SALINE 1000 ML 1,000 ML IV PRN ×2 (08:27→15:56)
[2016-10-20] MEDS: DULOXETINE HCL 30 MG CAPSULE.DR PO SCH (09:50)
[2016-10-20] MEDS: DULOXETINE HCL 20 MG CAPSULE.DR PO SCH (09:50)
--- NOTE | 2016-10-20 10:47 | PDOC PROGRESS REPORT ---
Subjective Progress Note for:: 10/20/16 Subjective:: Patient is currently doing same. Still very poor p.o. intake. As per the note from the surgeon and the family has not decided yet for any further decisions. Physical Exam Vital Signs: Temp Pulse Resp BP Pulse Ox 97.9 F 89 18 100/61 100 10/20/16 04:00 10/20/16 07:00 10/20/16 04:00 10/20/16 04:00 10/20/16 04:00 Intake & Output 10/19/16 10/20/16 10/21/16 06:59 06:59 06:59 Intake Total 1550 1740 Output Total 0 100 Balance 1550 1640 Weight 81.1 kg 56.9 kg General appearance: PRESENT: no acute distress Eye exam: PRESENT: scleral icterus Mouth exam: PRESENT: dry mucosa Respiratory exam: PRESENT: clear to auscultation barney GI/Abdominal exam: PRESENT: normal bowel sounds, soft Extremities exam: ABSENT: pedal edema Neurological exam: PRESENT: alert, awake Results Laboratory Results: 10/18/16 08:53 10/18/16 17:36 10/17/16 00:46 Troponin I 0.024 Impressions: Abdomen/Pelvis CT 10/17/16 00:00 IMPRESSION: 1. Numerous mass lesions are identified in the lower lung purcell concerning for underlying metastasis. 2. R is altered attenuation seen throughout the liver concerning for possible liver metastasis though evaluation is somewhat limited on this study without IV contrast. 3. There there are soft tissue nodule seen along the left peritoneal surface as detailed above concerning for peritoneal implants/metastasis. There also appears to be masslike lesion seen in the abdomen adjacent to the stomach in the lesser sac region present adjacent surgical clips this concerning for possible mass. 4. Colostomy noted in the right upper quadrant. Langston's pouch noted. Chest X-Ray 10/18/16 00:00 IMPRESSION: INTERVAL PLACEMENT RIGHT SUBCLAVIAN VENOUS CATHETER TERMINATING DEEP WITHIN THE RIGHT ATRIUM. RECOMMEND PULLING BACK 5 6 CM. STABLE APPEARANCE OF BILATERAL LUNG MASSES AGAIN CONCERNING FOR METASTATIC DISEASE. Assessment & Plan - Diagnosis (1) Acute kidney injury Is this a current diagnosis for this admission?: YesPlan: Continues to IV fluid (2) Colon cancer Qualifiers: Colon location: unspecified part of colon Qualified Code(s): C18.9 - Malignant neoplasm of colon, unspecified Is this a current diagnosis for this admission?: YesPlan: Pretty much end-stage disease (3) History of colon cancer, stage IV Is this a current diagnosis for this admission?: YesPlan: Follow with the oncology (4) Hyperkalemia Is this a current diagnosis for this admission?: Yes (5) Multisystem organ failure Is this a current diagnosis for this admission?: Yes - Time Time Spent with patient: 15-24 minutes Medications reviewed and adjusted accordingly: Yes Anticipated discharge: Other Within: Other - Inpatient Certification Medical Necessity: Need For IV Fluids Post Hospital Care: D/C [employer]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
[2016-10-20] MEDS: MORPHINE SULFATE 10 MG/ML INJ IV PRN ×2 (16:17→21:27)
[2016-10-21] MEDS: NORMAL SALINE 1000 ML 1,000 ML IV PRN ×3 (02:22→23:17)
[2016-10-21] MEDS: MORPHINE SULFATE 10 MG/ML INJ IV PRN ×2 (02:22→08:08)
[2016-10-21] MEDS: HEPARIN SOD (PORCINE) 5,000 UNIT/ML 1 ML SYRINGE SUBCUT SCH ×3 (05:13→22:02)
[2016-10-21 06:09] LABS: ANION GAP 13 (5-19); BLOOD UREA NITROGEN 97 mg/dL (7-20); CALCIUM 9.1 mg/dL (8.4-10.2); CARBON DIOXIDE 15 mmol/L (22-30); CHLORIDE 110 mmol/L (98-107); CREATININE RESULT 1.65 mg/dL (0.52-1.25); GLUCOSE 83 mg/dL (75-110); POTASSIUM 4.3 mmol/L (3.6-5.0); SODIUM 137.7 mmol/L (137-145)
[2016-10-21] MEDS: DULOXETINE HCL 30 MG CAPSULE.DR PO SCH (10:01)
[2016-10-21] MEDS: DULOXETINE HCL 20 MG CAPSULE.DR PO SCH (10:01)
--- NOTE | 2016-10-21 10:45 | PROGRESS NOTE E ---
Progress Note NAME: POORNIMA MISHRA : 1965 AGE: 51Y DATE: 10/21/2016 ROOM: 414 SUBJECTIVE: The patient is awake, mumbling, and complaining of some abdominal pain. OBJECTIVE: VITAL SIGNS: Stable. ABDOMEN: The abdomen examined. It is firm, but flat. The ostomy is putting out significant amount of stool. I personally reviewed the CT scan of the abdomen and pelvis from last week. There was extensive metastatic implants throughout the peritoneal cavity, and the liver is replete with malignancy. IMPRESSION: SYSTEMICALLY ADVANCED STAGE 4 COLORECTAL CARCINOMA. DISCUSSION: I have reviewed the documentation by the surgeons from last week and agree with Dr. Alexander. The patient has advanced stage 4 colon cancer, with a stuck down abdominal cavity with a massive liver. The technical challenge of inserting an operative gastrostomy or jejunostomy would be prohibitive. Furthermore, I believe we are engaging in medical futility by subjecting the patient to a surgical intervention that will have no meaningful impact on her quality of life or her duration of time remaining. I agree with the recommendation that treatment be directed towards palliative care. DICTATING PHYSICIAN: DAYANARA PEREIRA M.D. [id number] PHY#: [id number] ID: [id number] JOB#: [id number] ACCT: [id number] cc: >
[2016-10-21 14:28] LABS: PATH REVIEW PATHOLOGIST REVIEWED
--- NOTE | 2016-10-21 16:44 | PDOC PROGRESS REPORT ---
Subjective Progress Note for:: 10/21/16 Subjective:: She was seen by the bedside, stage IV colon cancer with lung metastases and massive liver due to metastasis, she is a poor candidate for surgical placement of a feeding tube, she does not communicate effectively, she seems to have cognitive impairment ,prognosis is very poor in this patient Physical Exam Vital Signs: Temp Pulse Resp BP Pulse Ox 97.2 F 95 15 98/56 L 100 10/21/16 12:00 10/21/16 14:00 10/21/16 12:00 10/21/16 12:00 10/21/16 12:00 Intake & Output 10/20/16 10/21/16 10/22/16 06:59 06:59 06:59 Intake Total 1740 2860 50 Output Total 100 0 Balance 1640 2860 50 Weight 56.9 kg 74.1 kg General appearance: PRESENT: mild distress Eye exam: PRESENT: PERRLA Respiratory exam: PRESENT: rhonchi Cardiovascular exam: PRESENT: +S1, +S2 GI/Abdominal exam: PRESENT: soft Results Laboratory Results: 10/18/16 08:53 10/21/16 05:25 10/18/16 10/21/16 08:53 05:25 WBC 15.8 H RBC 3.84 Hgb 10.7 L Hct 33.9 L MCV 88 MCH 27.8 MCHC 31.4 L RDW 22.0 H Plt Count 188 Sodium 137.7 Potassium 4.3 Chloride 110 H Carbon Dioxide 15 L Anion Gap 13 BUN 97 H Creatinine 1.65 H Est GFR ( Amer) 39 L Est GFR (Non-Af Amer) 33 L Glucose 83 Calcium 9.1 10/17/16 00:46 Troponin I 0.024 Impressions: Abdomen/Pelvis CT 10/17/16 00:00 IMPRESSION: 1. Numerous mass lesions are identified in the lower lung purcell concerning for underlying metastasis. 2. R is altered attenuation seen throughout the liver concerning for possible liver metastasis though evaluation is somewhat limited on this study without IV contrast. 3. There there are soft tissue nodule seen along the left peritoneal surface as detailed above concerning for peritoneal implants/metastasis. There also appears to be masslike lesion seen in the abdomen adjacent to the stomach in the lesser sac region present adjacent surgical clips this concerning for possible mass. 4. Colostomy noted in the right upper quadrant. Langston's pouch noted. Chest X-Ray 10/18/16 00:00 IMPRESSION: INTERVAL PLACEMENT RIGHT SUBCLAVIAN VENOUS CATHETER TERMINATING DEEP WITHIN THE RIGHT ATRIUM. RECOMMEND PULLING BACK 5 6 CM. STABLE APPEARANCE OF BILATERAL LUNG MASSES AGAIN CONCERNING FOR METASTATIC DISEASE. Assessment & Plan - Diagnosis (1) Acute kidney injury Is this a current diagnosis for this admission?: YesPlan: Improvement in acute kidney injury with hydration suggesting that this is pre- renal acute kidney injury rather than intrisinic kidney disease (2) Hyperkalemia Is this a current diagnosis for this admission?: Yes (3) Malignant neoplasm of left colon Is this a current diagnosis for this admission?: Yes (4) Hyponatremia Is this a current diagnosis for this admission?: Yes
--- NOTE | 2016-10-21 17:53 | CONSULTATION REPORT E ---
Consultation Report NAME: POORNIMA MISHRA : 1965 AGE: 51Y DATE: 10/21/2016 414 A TO: LEANA STEVENS M.D. FROM: TULIO BATISTA M.D. Requesting Physician HISTORY OF PRESENT ILLNESS: She is a 51-year-old with stage-4 colon cancer. I was able to meet with her family, and I also saw her in the hospital today. She appears to be a little bit more awake. She has bilateral leg swelling. Her CAT scan done October 17, 2016 shows numerous mass lesions in the lower lung purcell concerning for metastatic disease. She also has possible liver metastases. She has soft tissue nodules along the left peritoneal sulcus suggestive of peritoneal *------* disease. Her labs from October 18: White count is 15.8, hemoglobin 10.7, platelet count is 188,000. Her CEA was 14,700. BUN 97, creatinine 1.6. IMPRESSION AND PLAN: The patient is a 51-year-old with stage-4 colon cancer. I had a long discussion with the family, the father and the brother was present. At this time, she was unable to give consent for treatment. However, the family would like her to be treated with chemotherapy. I had called Dr. Castro, who was the medical oncologist seeing her in [place]. She was previously treated with Xeloda. I discussed using FOLFOX with them. I explained to them that stage-4 colon cancer was not curable, however, could be palliated with chemotherapy. Given poor performance status, I will reduce her dose to 60% of the recommended dosing. I explained that this will be given every other week. The first dose could be given tomorrow. I discussed the side effects of peripheral neuropathy, diarrhea, or rash from the 5FU. I explained the regimen was usually well tolerated. They are willing to get her treated. She will receive the first dose tomorrow. Subsequently, if she improves, she will be treated as an outpatient. Once again, I thank you for this consultation and allowing me to be part of her care. DICTATING PHYSICIAN: LEANA STEVENS M.D. [id number] Y#: [id number] ID: [id number] JOB#: [id number] ACCT: [id number] cc:LEANA STEVENS M.D. >
[2016-10-22] MEDS: MORPHINE SULFATE 10 MG/ML INJ IV PRN ×4 (00:16→22:22)
[2016-10-22] MEDS ORDERED: FLUOROURACIL 728 MG in SYRINGE, DISPOSABLE, 1 EACH IV PRN (05:00)
[2016-10-22] MEDS ORDERED: DEXTROSE 5%-WATER 250 ML IV PRN (05:00)
[2016-10-22] MEDS ORDERED: CONTAINER EMPTY IV PRN ×2 (05:00→07:22)
[2016-10-22] MEDS ORDERED: LEUCOVORIN CALCIUM IV PRN (05:00)
[2016-10-22] MEDS ORDERED: WATER IV PRN ×2 (05:00)
[2016-10-22] MEDS ORDERED: DEXTROSE 5% IV PRN ×2 (05:00)
[2016-10-22] MEDS ORDERED: FLUOROURACIL IV PRN ×2 (05:00→07:22)
[2016-10-22] MEDS ORDERED: OXALIPLATIN IV PRN (05:00)
[2016-10-22] MEDS ORDERED: ONDANSETRON HCL/PF 16 MG, DEXAMETHASONE SOD PHOSPHATE 20 MG in NORMAL SALINE 50 ML IV PRN (05:00)
[2016-10-22] MEDS: HEPARIN SOD (PORCINE) 5,000 UNIT/ML 1 ML SYRINGE SUBCUT SCH ×3 (05:14→21:24)
[2016-10-22] MEDS ORDERED: NORMAL SALINE IV PRN (07:16)
[2016-10-22] MEDS ORDERED: ONDANSETRON HCL IV PRN (07:16)
[2016-10-22] MEDS ORDERED: DEXAMETHASONE SOD PHOSPHATE IV PRN (07:16)
[2016-10-22] MEDS: DULOXETINE HCL 20 MG CAPSULE.DR PO SCH (09:49)
[2016-10-22] MEDS: DULOXETINE HCL 30 MG CAPSULE.DR PO SCH (09:49)
[2016-10-22] MEDS: NORMAL SALINE 1000 ML 1,000 ML IV PRN (17:56)
--- NOTE | 2016-10-22 18:42 | PDOC PROGRESS REPORT ---
Subjective Progress Note for:: 10/22/16 Subjective:: Patient was seen by the bedside, she had the first dose of chemotherapy today but she does not communicate effectively Physical Exam Vital Signs: Temp Pulse Resp BP Pulse Ox 97.3 F 89 16 99/53 L 100 10/22/16 08:16 10/22/16 14:00 10/22/16 08:16 10/22/16 08:16 10/22/16 08:16 Intake & Output 10/21/16 10/22/16 10/23/16 06:59 06:59 06:59 Intake Total 2860 2930 747 Output Total 0 Balance 2860 2930 747 Weight 74.1 kg 81.1 kg General appearance: PRESENT: no acute distress Eye exam: PRESENT: PERRLA Respiratory exam: PRESENT: clear to auscultation barney Cardiovascular exam: PRESENT: +S1, +S2 GI/Abdominal exam: PRESENT: soft Neurological exam: PRESENT: alert Results Laboratory Results: 10/18/16 08:53 10/21/16 05:25 10/17/16 00:46 Blood Blood Culture - Final NO GROWTH IN 5 DAYS 10/16/16 23:04 Blood Blood Culture - Final NO GROWTH IN 5 DAYS 10/17/16 00:46 Troponin I 0.024 Impressions: Abdomen/Pelvis CT 10/17/16 00:00 IMPRESSION: 1. Numerous mass lesions are identified in the lower lung purcell concerning for underlying metastasis. 2. R is altered attenuation seen throughout the liver concerning for possible liver metastasis though evaluation is somewhat limited on this study without IV contrast. 3. There there are soft tissue nodule seen along the left peritoneal surface as detailed above concerning for peritoneal implants/metastasis. There also appears to be masslike lesion seen in the abdomen adjacent to the stomach in the lesser sac region present adjacent surgical clips this concerning for possible mass. 4. Colostomy noted in the right upper quadrant. Langston's pouch noted. Chest X-Ray 10/18/16 00:00 IMPRESSION: INTERVAL PLACEMENT RIGHT SUBCLAVIAN VENOUS CATHETER TERMINATING DEEP WITHIN THE RIGHT ATRIUM. RECOMMEND PULLING BACK 5 6 CM. STABLE APPEARANCE OF BILATERAL LUNG MASSES AGAIN CONCERNING FOR METASTATIC DISEASE. Assessment & Plan - Diagnosis (1) Acute kidney injury Is this a current diagnosis for this admission?: Yes (2) Hyperkalemia Is this a current diagnosis for this admission?: Yes (3) Malignant neoplasm of left colon Is this a current diagnosis for this admission?: Yes (4) Hyponatremia Is this a current diagnosis for this admission?: Yes
[2016-10-22 19:01] LABS: HEMATOCRIT 34.9 % (36.0-47.0); HEMOGLOBIN 10.7 g/dL (12.0-15.5); HGB HCT DIFFERENCE -2.8; MEAN CORPUSCULAR HEMOGLOBIN 27.3 pg (27.0-33.4); MEAN CORPUSCULAR HGB CONC 30.7 g/dL (32.0-36.0); MEAN CORPUSCULAR VOLUME 89 fl (80-97); RED BLOOD COUNT 3.93 10^6/uL (3.72-5.28); RED CELL DISTRIBUTION WIDTH 22.6 % (11.5-14.0); WHITE BLOOD COUNT 14.4 10^3/uL (4.0-10.5)
[2016-10-22 19:20] LABS: ALANINE AMINOTRANSFERASE 104 U/L (9-52); ALBUMIN 2.3 g/dL (3.5-5.0); ALKALINE PHOSPHATASE 526 U/L (38-126); ANION GAP 12 (5-19); ASPARTATE AMINO TRANSFERASE 618 U/L (14-36); BILIRUBIN,DIRECT 7.8 mg/dL (0.0-0.4); BILIRUBIN,TOTAL 8.6 mg/dL (0.2-1.3); BLOOD UREA NITROGEN 94 mg/dL (7-20); CALCIUM 9.4 mg/dL (8.4-10.2); CARBON DIOXIDE 14 mmol/L (22-30); CHLORIDE 114 mmol/L (98-107); CREATININE RESULT 1.47 mg/dL (0.52-1.25); GLUCOSE 116 mg/dL (75-110); SODIUM 139.7 mmol/L (137-145)
[2016-10-22 19:21] LABS: BAND NEUTROPHILS % (MANUAL) 3 % (3-5); BASOPHILS % (MANUAL) 0 % (0-2); EOSINOPHILS % (MANUAL) 0 % (0-6); LYMPHOCYTES % (MANUAL) 3 % (13-45); TOTAL CELLS COUNTED 100
[2016-10-22 19:22] LABS: TOXIC VACUOLATION PRESENT
[2016-10-22 19:23] LABS: ANISOCYTOSIS 3+; BURR CELLS 2+; OVALOCYTES SLIGHT; PLATELET CLUMPS PRESENT; POIKILOCYTOSIS 1+; POLYCHROMASIA 1+; TARGET CELLS 2+
[2016-10-22] MEDS: ONDANSETRON HCL/PF 8 MG in NORMAL SALINE 50 ML IV SCH (22:09)
[2016-10-23] MEDS: HEPARIN SOD (PORCINE) 5,000 UNIT/ML 1 ML SYRINGE SUBCUT SCH ×3 (05:33→21:52)
[2016-10-23] MEDS: ONDANSETRON HCL/PF 8 MG in NORMAL SALINE 50 ML IV SCH ×3 (05:46→21:58)
[2016-10-23 06:13] LABS: HEMOGLOBIN 11.2 g/dL (12.0-15.5); HGB HCT DIFFERENCE -2.4; MEAN CORPUSCULAR HEMOGLOBIN 27.6 pg (27.0-33.4); MEAN CORPUSCULAR HGB CONC 31.2 g/dL (32.0-36.0); MEAN CORPUSCULAR VOLUME 88 fl (80-97); RED BLOOD COUNT 4.07 10^6/uL (3.72-5.28); RED CELL DISTRIBUTION WIDTH 22.8 % (11.5-14.0); WHITE BLOOD COUNT 14.4 10^3/uL (4.0-10.5)
[2016-10-23 06:24] LABS: ALANINE AMINOTRANSFERASE 105 U/L (9-52); ALBUMIN 2.3 g/dL (3.5-5.0); ALKALINE PHOSPHATASE 528 U/L (38-126); ANION GAP 14 (5-19); ASPARTATE AMINO TRANSFERASE 624 U/L (14-36); BILIRUBIN,DIRECT 7.9 mg/dL (0.0-0.4); BILIRUBIN,TOTAL 8.8 mg/dL (0.2-1.3); BLOOD UREA NITROGEN 92 mg/dL (7-20); CALCIUM 9.4 mg/dL (8.4-10.2); CARBON DIOXIDE 12 mmol/L (22-30); CHLORIDE 116 mmol/L (98-107); CREATININE RESULT 1.47 mg/dL (0.52-1.25); GLUCOSE 114 mg/dL (75-110); POTASSIUM 5.3 mmol/L (3.6-5.0); SODIUM 142.1 mmol/L (137-145); TOTAL PROTEIN 7.2 g/dL (6.3-8.2)
[2016-10-23 06:53] LABS: BASOPHILS % (MANUAL) 0 % (0-2); EOSINOPHILS % (MANUAL) 0 % (0-6); LYMPHOCYTES % (MANUAL) 4 % (13-45); NUCLEATED RED BLOOD CELLS 3 /100 WBC (0); TOTAL CELLS COUNTED 100
[2016-10-23 06:55] LABS: ANISOCYTOSIS 3+; BURR CELLS 2+; POIKILOCYTOSIS 3+; SCHISTOCYTES SLIGHT; TARGET CELLS 1+
[2016-10-23] MEDS: MORPHINE SULFATE 10 MG/ML INJ IV PRN ×2 (08:19→21:51)
--- NOTE | 2016-10-23 09:16 | PROGRESS NOTE E ---
Progress Note NAME: POORNIMA MISHRA : 1965 AGE: 51Y DATE: 10/22/2016 ROOM: 414 The patient was seen at the bedside today as a followup. She was started on chemotherapy with FOLFOX. She was sleeping on the bed comfortably. She still has the 5-FU infusion over the next 48 hours. I will recommend IV Zofran every 8 hours with nausea for the next 3 days. I was told by the nurse that she has not received any nutrition by mouth. I would recommend parenteral nutrition if possible. I had a long discussion with the family yesterday and explained that she may show signs of response over the next week or 2 and chemotherapy can be continued as an outpatient after she is discharged to the [facility]. The father had signed the consent for her to receive the chemotherapy today. Her next cycle will be due in about 2 weeks. Her CBC should be checked as well as the electrolytes once a week. DICTATING PHYSICIAN: LEANA STEVENS M.D. [id number] MEHUL#: [id number] ID: [id number] JOB#: [id number] ACCT: [id number] cc: >
[2016-10-23] MEDS: DULOXETINE HCL 30 MG CAPSULE.DR PO SCH (11:18)
[2016-10-23] MEDS: DULOXETINE HCL 20 MG CAPSULE.DR PO SCH (11:18)
[2016-10-23] MEDS: NORMAL SALINE 1000 ML 1,000 ML IV PRN (13:31)
--- NOTE | 2016-10-23 14:33 | PDOC PROGRESS REPORT ---
Subjective Progress Note for:: 10/23/16 Subjective:: Patient was seen by the bedside, she has very poor functional status, the blood pressure is low today. Palliative care consultation will be obtained for this patient, she is not particularly a good candidate for any long-term chemotherapy , I believe she needs to go to hospice. She had chemo yesterday. Physical Exam Vital Signs: Temp Pulse Resp BP Pulse Ox 97.9 F 106 H 17 80/55 L 99 10/23/16 11:56 10/23/16 11:56 10/23/16 11:56 10/23/16 11:56 10/23/16 11:56 Intake & Output 10/22/16 10/23/16 10/24/16 06:59 06:59 06:59 Intake Total 2930 3267 Balance 2930 3267 Weight 81.1 kg 81 kg General appearance: PRESENT: no acute distress Eye exam: PRESENT: PERRLA Respiratory exam: PRESENT: clear to auscultation barney Cardiovascular exam: PRESENT: +S1, +S2 GI/Abdominal exam: PRESENT: soft Results Laboratory Results: 10/23/16 05:17 10/23/16 05:17 10/22/16 10/22/16 10/23/16 18:50 18:50 05:17 WBC 14.4 H 14.4 H RBC 3.93 4.07 Hgb 10.7 L 11.2 L Hct 34.9 L 36.0 MCV 89 88 MCH 27.3 27.6 MCHC 30.7 L 31.2 L RDW 22.6 H 22.8 H Plt Count 132 L 117 L Seg Neutrophils % Not Reportable Not Reportable Lymphocytes % Not Reportable Not Reportable Monocytes % Not Reportable Not Reportable Eosinophils % Not Reportable Not Reportable Basophils % Not Reportable Not Reportable Absolute Neutrophils Not Reportable Not Reportable Absolute Lymphocytes Not Reportable Not Reportable Absolute Monocytes Not Reportable Not Reportable Absolute Eosinophils Not Reportable Not Reportable Absolute Basophils Not Reportable Not Reportable Sodium 139.7 Potassium 5.0 Chloride 114 H Carbon Dioxide 14 L Anion Gap 12 BUN 94 H Creatinine 1.47 H Est GFR ( Amer) 45 L Est GFR (Non-Af Amer) 37 L Glucose 116 H Calcium 9.4 Total Bilirubin 8.6 H AST 618 H ALT 104 H Alkaline Phosphatase 526 H Total Protein 7.0 Albumin 2.3 L 10/23/16 05:17 WBC RBC Hgb Hct MCV MCH MCHC RDW Plt Count Seg Neutrophils % Lymphocytes % Monocytes % Eosinophils % Basophils % Absolute Neutrophils Absolute Lymphocytes Absolute Monocytes Absolute Eosinophils Absolute Basophils Sodium 142.1 Potassium 5.3 H Chloride 116 H Carbon Dioxide 12 L Anion Gap 14 BUN 92 H Creatinine 1.47 H Est GFR ( Amer) 45 L Est GFR (Non-Af Amer) 37 L Glucose 114 H Calcium 9.4 Total Bilirubin 8.8 H AST 624 H ALT 105 H Alkaline Phosphatase 528 H Total Protein 7.2 Albumin 2.3 L 10/17/16 00:46 Troponin I 0.024 Impressions: Abdomen/Pelvis CT 10/17/16 00:00 IMPRESSION: 1. Numerous mass lesions are identified in the lower lung purcell concerning for underlying metastasis. 2. R is altered attenuation seen throughout the liver concerning for possible liver metastasis though evaluation is somewhat limited on this study without IV contrast. 3. There there are soft tissue nodule seen along the left peritoneal surface as detailed above concerning for peritoneal implants/metastasis. There also appears to be masslike lesion seen in the abdomen adjacent to the stomach in the lesser sac region present adjacent surgical clips this concerning for possible mass. 4. Colostomy noted in the right upper quadrant. Langston's pouch noted. Chest X-Ray 10/18/16 00:00 IMPRESSION: INTERVAL PLACEMENT RIGHT SUBCLAVIAN VENOUS CATHETER TERMINATING DEEP WITHIN THE RIGHT ATRIUM. RECOMMEND PULLING BACK 5 6 CM. STABLE APPEARANCE OF BILATERAL LUNG MASSES AGAIN CONCERNING FOR METASTATIC DISEASE. Assessment & Plan - Diagnosis (1) Acute kidney injury Is this a current diagnosis for this admission?: Yes (2) Hyperkalemia Is this a current diagnosis for this admission?: Yes (3) Malignant neoplasm of left colon Is this a current diagnosis for this admission?: Yes (4) Hyponatremia Is this a current diagnosis for this admission?: Yes
[2016-10-24] MEDS: HEPARIN SOD (PORCINE) 5,000 UNIT/ML 1 ML SYRINGE SUBCUT SCH ×3 (05:36→21:37)
[2016-10-24] MEDS: ONDANSETRON HCL/PF 8 MG in NORMAL SALINE 50 ML IV SCH ×3 (05:36→21:36)
[2016-10-24] MEDS: NORMAL SALINE 1000 ML 1,000 ML IV PRN ×2 (08:44→16:18)
[2016-10-24] MEDS: DULOXETINE HCL 20 MG CAPSULE.DR PO SCH (12:20)
[2016-10-24] MEDS: DULOXETINE HCL 30 MG CAPSULE.DR PO SCH (12:20)
[2016-10-24] MEDS: MORPHINE SULFATE 10 MG/ML INJ IV PRN (19:42)
--- NOTE | 2016-10-24 20:06 | PDOC PROGRESS REPORT ---
Subjective Progress Note for:: 10/24/16 Subjective:: Patient was seen by the bedside family was in the room, she is not eating, I again suggested to the family about hospice care. Family is not in agreement at this time with hospice option family wants patient to eat . feeding Tube will be ordered Physical Exam Vital Signs: Temp Pulse Resp BP Pulse Ox 97.4 F 98 11 L 83/58 L 100 10/24/16 16:00 10/24/16 16:00 10/24/16 16:00 10/24/16 16:00 10/24/16 11:23 Intake & Output 10/23/16 10/24/16 10/25/16 06:59 06:59 06:59 Intake Total 3267 2790 1420 Output Total 0 50 Balance 3267 2790 1370 Weight 81 kg 82.1 kg General appearance: PRESENT: other - Patient is not coherent, not responding appropriately to speech or any command Respiratory exam: PRESENT: decreased breath sounds Cardiovascular exam: PRESENT: +S1, +S2 Neurological exam: PRESENT: altered Results Laboratory Results: 10/23/16 05:17 10/23/16 05:17 10/17/16 00:46 Troponin I 0.024 Impressions: Abdomen/Pelvis CT 10/17/16 00:00 IMPRESSION: 1. Numerous mass lesions are identified in the lower lung purcell concerning for underlying metastasis. 2. R is altered attenuation seen throughout the liver concerning for possible liver metastasis though evaluation is somewhat limited on this study without IV contrast. 3. There there are soft tissue nodule seen along the left peritoneal surface as detailed above concerning for peritoneal implants/metastasis. There also appears to be masslike lesion seen in the abdomen adjacent to the stomach in the lesser sac region present adjacent surgical clips this concerning for possible mass. 4. Colostomy noted in the right upper quadrant. Langston's pouch noted. Chest X-Ray 10/18/16 00:00 IMPRESSION: INTERVAL PLACEMENT RIGHT SUBCLAVIAN VENOUS CATHETER TERMINATING DEEP WITHIN THE RIGHT ATRIUM. RECOMMEND PULLING BACK 5 6 CM. STABLE APPEARANCE OF BILATERAL LUNG MASSES AGAIN CONCERNING FOR METASTATIC DISEASE. Assessment & Plan - Diagnosis (1) Acute kidney injury Is this a current diagnosis for this admission?: Yes (2) Hyperkalemia Is this a current diagnosis for this admission?: Yes (3) Malignant neoplasm of left colon Is this a current diagnosis for this admission?: YesPlan: The nursing staff called and stated that family does not want anymore feeding tube inserted. (4) Hyponatremia Is this a current diagnosis for this admission?: Yes
[2016-10-25] MEDS: ONDANSETRON HCL/PF 8 MG in NORMAL SALINE 50 ML IV SCH ×2 (05:31→13:49)
[2016-10-25] MEDS: HEPARIN SOD (PORCINE) 5,000 UNIT/ML 1 ML SYRINGE SUBCUT SCH ×3 (05:53→21:34)
[2016-10-25] MEDS: DULOXETINE HCL 20 MG CAPSULE.DR PO SCH (11:38)
[2016-10-25] MEDS: DULOXETINE HCL 30 MG CAPSULE.DR PO SCH (11:38)
[2016-10-25] MEDS: FENTANYL 100 MCG/HR PATCH.TD72 TD SCH (16:05)
--- NOTE | 2016-10-25 17:05 | PDOC PROGRESS REPORT ---
Subjective Progress Note for:: 10/25/16 Subjective:: Patient with minimal food intake, hospice consultation requested Physical Exam Vital Signs: Temp Pulse Resp BP Pulse Ox 97.2 F 98 15 96/32 L 100 10/25/16 16:22 10/25/16 16:22 10/25/16 16:22 10/25/16 16:22 10/25/16 16:22 Intake & Output 10/24/16 10/25/16 10/26/16 06:59 06:59 06:59 Intake Total 2790 2840 Output Total 0 50 Balance 2790 2790 Weight 82.1 kg 82.7 kg Eye exam: PRESENT: PERRLA Neck exam: PRESENT: full ROM Respiratory exam: PRESENT: clear to auscultation barney Cardiovascular exam: PRESENT: +S1, +S2 Rectal exam: PRESENT: deferred Neurological exam: PRESENT: alert, awake, oriented to person, oriented to place , oriented to time, oriented to situation, CN II-XII grossly intact. ABSENT: motor sensory deficit Psychiatric exam: PRESENT: appropriate affect, normal mood. ABSENT: homicidal ideation, suicidal ideation Skin exam: PRESENT: dry, intact, warm. ABSENT: cyanosis, rash Results Laboratory Results: 10/23/16 05:17 10/23/16 05:17 10/17/16 00:46 Troponin I 0.024 Impressions: Abdomen/Pelvis CT 10/17/16 00:00 IMPRESSION: 1. Numerous mass lesions are identified in the lower lung purcell concerning for underlying metastasis. 2. R is altered attenuation seen throughout the liver concerning for possible liver metastasis though evaluation is somewhat limited on this study without IV contrast. 3. There there are soft tissue nodule seen along the left peritoneal surface as detailed above concerning for peritoneal implants/metastasis. There also appears to be masslike lesion seen in the abdomen adjacent to the stomach in the lesser sac region present adjacent surgical clips this concerning for possible mass. 4. Colostomy noted in the right upper quadrant. Langston's pouch noted. Chest X-Ray 10/18/16 00:00 IMPRESSION: INTERVAL PLACEMENT RIGHT SUBCLAVIAN VENOUS CATHETER TERMINATING DEEP WITHIN THE RIGHT ATRIUM. RECOMMEND PULLING BACK 5 6 CM. STABLE APPEARANCE OF BILATERAL LUNG MASSES AGAIN CONCERNING FOR METASTATIC DISEASE. Assessment & Plan - Diagnosis (1) Acute kidney injury Is this a current diagnosis for this admission?: Yes (2) Hyperkalemia Is this a current diagnosis for this admission?: Yes (3) Malignant neoplasm of left colon Is this a current diagnosis for this admission?: Yes (4) Hyponatremia Is this a current diagnosis for this admission?: Yes
[2016-10-25 22:05] LABS: HEMATOCRIT 32.3 % (36.0-47.0); HEMOGLOBIN 10.2 g/dL (12.0-15.5); HGB HCT DIFFERENCE -1.7; MEAN CORPUSCULAR HEMOGLOBIN 27.8 pg (27.0-33.4); MEAN CORPUSCULAR HGB CONC 31.7 g/dL (32.0-36.0); MEAN CORPUSCULAR VOLUME 88 fl (80-97); RED BLOOD COUNT 3.67 10^6/uL (3.72-5.28); RED CELL DISTRIBUTION WIDTH 23.1 % (11.5-14.0); WHITE BLOOD COUNT 11.3 10^3/uL (4.0-10.5)
[2016-10-25 22:25] LABS: ALANINE AMINOTRANSFERASE 84 U/L (9-52); ALBUMIN 2.1 g/dL (3.5-5.0); ALKALINE PHOSPHATASE 460 U/L (38-126); ANION GAP 17 (5-19); ASPARTATE AMINO TRANSFERASE 243 U/L (14-36); BILIRUBIN,DIRECT 6.7 mg/dL (0.0-0.4); BILIRUBIN,TOTAL 7.7 mg/dL (0.2-1.3); BLOOD UREA NITROGEN 84 mg/dL (7-20); CARBON DIOXIDE 13 mmol/L (22-30); CHLORIDE 127 mmol/L (98-107); CREATININE RESULT 1.46 mg/dL (0.52-1.25); GLUCOSE 144 mg/dL (75-110); POTASSIUM 4.3 mmol/L (3.6-5.0); SODIUM 156.5 mmol/L (137-145); TOTAL PROTEIN 6.2 g/dL (6.3-8.2)
[2016-10-25 22:28] LABS: BAND NEUTROPHILS % (MANUAL) 1 % (3-5); BASOPHILS % (MANUAL) 0 % (0-2); EOSINOPHILS % (MANUAL) 1 % (0-6); LYMPHOCYTES % (MANUAL) 3 % (13-45); NUCLEATED RED BLOOD CELLS 4 /100 WBC (0); TOTAL CELLS COUNTED 100
[2016-10-25 22:35] LABS: SMUDGE CELLS PRESENT; TOXIC VACUOLATION PRESENT
[2016-10-25 22:36] LABS: ANISOCYTOSIS 3+; BURR CELLS 2+; POIKILOCYTOSIS 1+; POLYCHROMASIA 1+; TARGET CELLS 1+; TOXIC GRANULATION SLIGHT
[2016-10-25 22:38] LABS: PLATELET CLUMPS PRESENT
[2016-10-26 06:11] LABS: ALANINE AMINOTRANSFERASE 79 U/L (9-52); ALBUMIN 2.1 g/dL (3.5-5.0); ALKALINE PHOSPHATASE 435 U/L (38-126); ANION GAP 16 (5-19); ASPARTATE AMINO TRANSFERASE 208 U/L (14-36); BILIRUBIN,DIRECT 6.7 mg/dL (0.0-0.4); BILIRUBIN,TOTAL 7.6 mg/dL (0.2-1.3); BLOOD UREA NITROGEN 83 mg/dL (7-20); CARBON DIOXIDE 12 mmol/L (22-30); CHLORIDE 130 mmol/L (98-107); CREATININE RESULT 1.31 mg/dL (0.52-1.25); GLUCOSE 145 mg/dL (75-110); POTASSIUM 4.3 mmol/L (3.6-5.0); SODIUM 158.3 mmol/L (137-145); TOTAL PROTEIN 6.2 g/dL (6.3-8.2)
[2016-10-26 06:12] LABS: HEMATOCRIT 32.2 % (36.0-47.0); HEMOGLOBIN 10.3 g/dL (12.0-15.5); HGB HCT DIFFERENCE -1.3; MEAN CORPUSCULAR HEMOGLOBIN 28.2 pg (27.0-33.4); MEAN CORPUSCULAR HGB CONC 32.1 g/dL (32.0-36.0); MEAN CORPUSCULAR VOLUME 88 fl (80-97); RED BLOOD COUNT 3.67 10^6/uL (3.72-5.28); WHITE BLOOD COUNT 10.3 10^3/uL (4.0-10.5)
[2016-10-26] MEDS: HEPARIN SOD (PORCINE) 5,000 UNIT/ML 1 ML SYRINGE SUBCUT SCH ×3 (06:25→22:25)
[2016-10-26 06:42] LABS: BASOPHILS % (MANUAL) 0 % (0-2); EOSINOPHILS % (MANUAL) 0 % (0-6); LYMPHOCYTES % (MANUAL) 2 % (13-45); TOTAL CELLS COUNTED 100
[2016-10-26 06:45] LABS: ACANTHOCYTES 1+; ANISOCYTOSIS 3+; POIKILOCYTOSIS 2+; SCHISTOCYTES SLIGHT; TARGET CELLS 2+; TOXIC VACUOLATION PRESENT
[2016-10-26 06:47] LABS: BURR CELLS 2+
[2016-10-26] MEDS: DULOXETINE HCL 30 MG CAPSULE.DR PO SCH (10:31)
[2016-10-26] MEDS: DULOXETINE HCL 20 MG CAPSULE.DR PO SCH (10:31)
--- NOTE | 2016-10-26 14:29 | PDOC PROGRESS REPORT ---
Subjective Progress Note for:: 10/26/16 Subjective:: She has hypernatremia from the blood test Physical Exam Vital Signs: Temp Pulse Resp BP Pulse Ox 97.2 F 98 15 81/40 L 100 10/26/16 12:08 10/26/16 12:08 10/26/16 12:08 10/26/16 12:08 10/26/16 12:08 Intake & Output 10/25/16 10/26/16 10/27/16 06:59 06:59 06:59 Intake Total 2840 2720 Output Total 50 Balance 2790 2720 Weight 82.7 kg 78.6 kg General appearance: PRESENT: no acute distress Eye exam: PRESENT: PERRLA Respiratory exam: PRESENT: rhonchi Cardiovascular exam: PRESENT: +S1, +S2 GI/Abdominal exam: PRESENT: soft Neurological exam: PRESENT: alert Results Laboratory Results: 10/26/16 05:45 10/26/16 05:45 10/25/16 10/25/16 10/26/16 21:55 21:55 05:45 WBC 11.3 H 10.3 RBC 3.67 L 3.67 L Hgb 10.2 L 10.3 L Hct 32.3 L 32.2 L MCV 88 88 MCH 27.8 28.2 MCHC 31.7 L 32.1 RDW 23.1 H 23.0 H Plt Count 101 L 96 L Seg Neutrophils % Not Reportable Not Reportable Lymphocytes % Not Reportable Not Reportable Monocytes % Not Reportable Not Reportable Eosinophils % Not Reportable Not Reportable Basophils % Not Reportable Not Reportable Absolute Neutrophils Not Reportable Not Reportable Absolute Lymphocytes Not Reportable Not Reportable Absolute Monocytes Not Reportable Not Reportable Absolute Eosinophils Not Reportable Not Reportable Absolute Basophils Not Reportable Not Reportable Sodium 156.5 H Potassium 4.3 Chloride 127 H Carbon Dioxide 13 L Anion Gap 17 BUN 84 H Creatinine 1.46 H Est GFR ( Amer) 45 L Est GFR (Non-Af Amer) 37 L Glucose 144 H Calcium 9.0 Total Bilirubin 7.7 H AST 243 H ALT 84 H Alkaline Phosphatase 460 H Total Protein 6.2 L Albumin 2.1 L 10/26/16 05:45 WBC RBC Hgb Hct MCV MCH MCHC RDW Plt Count Seg Neutrophils % Lymphocytes % Monocytes % Eosinophils % Basophils % Absolute Neutrophils Absolute Lymphocytes Absolute Monocytes Absolute Eosinophils Absolute Basophils Sodium 158.3 H Potassium 4.3 Chloride 130 H Carbon Dioxide 12 L Anion Gap 16 BUN 83 H Creatinine 1.31 H Est GFR ( Amer) 51 L Est GFR (Non-Af Amer) 42 L Glucose 145 H Calcium 9.0 Total Bilirubin 7.6 H AST 208 H ALT 79 H Alkaline Phosphatase 435 H Total Protein 6.2 L Albumin 2.1 L 10/17/16 00:46 Troponin I 0.024 Impressions: Abdomen/Pelvis CT 10/17/16 00:00 IMPRESSION: 1. Numerous mass lesions are identified in the lower lung purcell concerning for underlying metastasis. 2. R is altered attenuation seen throughout the liver concerning for possible liver metastasis though evaluation is somewhat limited on this study without IV contrast. 3. There there are soft tissue nodule seen along the left peritoneal surface as detailed above concerning for peritoneal implants/metastasis. There also appears to be masslike lesion seen in the abdomen adjacent to the stomach in the lesser sac region present adjacent surgical clips this concerning for possible mass. 4. Colostomy noted in the right upper quadrant. Langston's pouch noted. Chest X-Ray 10/18/16 00:00 IMPRESSION: INTERVAL PLACEMENT RIGHT SUBCLAVIAN VENOUS CATHETER TERMINATING DEEP WITHIN THE RIGHT ATRIUM. RECOMMEND PULLING BACK 5 6 CM. STABLE APPEARANCE OF BILATERAL LUNG MASSES AGAIN CONCERNING FOR METASTATIC DISEASE. Assessment & Plan - Diagnosis (1) Acute kidney injury Is this a current diagnosis for this admission?: Yes (2) Hyperkalemia Is this a current diagnosis for this admission?: Yes (3) Malignant neoplasm of left colon Is this a current diagnosis for this admission?: Yes (4) Hyponatremia Is this a current diagnosis for this admission?: Yes
[2016-10-27] MEDS: HEPARIN SOD (PORCINE) 5,000 UNIT/ML 1 ML SYRINGE SUBCUT SCH ×3 (05:09→22:54)
[2016-10-27] MEDS: DULOXETINE HCL 30 MG CAPSULE.DR PO SCH (11:46)
[2016-10-27] MEDS: DULOXETINE HCL 20 MG CAPSULE.DR PO SCH (11:46)
--- NOTE | 2016-10-27 14:31 | PDOC PROGRESS REPORT ---
Subjective Progress Note for:: 10/27/16 Subjective:: Patient is doing very poorly, the respiratory rate is about 4, DNR status Physical Exam Vital Signs: Temp Pulse Resp BP Pulse Ox 97.2 F 107 H 9 L 106/49 L 100 10/27/16 12:12 10/27/16 12:12 10/27/16 12:12 10/27/16 12:12 10/27/16 12:12 Intake & Output 10/26/16 10/27/16 10/28/16 06:59 06:59 06:59 Intake Total 2720 1734 Output Total 0 Balance 2720 1734 Weight 78.6 kg Eye exam: PRESENT: PERRLA Respiratory exam: PRESENT: clear to auscultation barney Cardiovascular exam: PRESENT: +S1, +S2 GI/Abdominal exam: PRESENT: soft Results Laboratory Results: 10/26/16 05:45 10/26/16 05:45 10/17/16 00:46 Troponin I 0.024 Impressions: Abdomen/Pelvis CT 10/17/16 00:00 IMPRESSION: 1. Numerous mass lesions are identified in the lower lung purcell concerning for underlying metastasis. 2. R is altered attenuation seen throughout the liver concerning for possible liver metastasis though evaluation is somewhat limited on this study without IV contrast. 3. There there are soft tissue nodule seen along the left peritoneal surface as detailed above concerning for peritoneal implants/metastasis. There also appears to be masslike lesion seen in the abdomen adjacent to the stomach in the lesser sac region present adjacent surgical clips this concerning for possible mass. 4. Colostomy noted in the right upper quadrant. Langston's pouch noted. Chest X-Ray 10/18/16 00:00 IMPRESSION: INTERVAL PLACEMENT RIGHT SUBCLAVIAN VENOUS CATHETER TERMINATING DEEP WITHIN THE RIGHT ATRIUM. RECOMMEND PULLING BACK 5 6 CM. STABLE APPEARANCE OF BILATERAL LUNG MASSES AGAIN CONCERNING FOR METASTATIC DISEASE. Assessment & Plan - Diagnosis (1) Acute kidney injury Is this a current diagnosis for this admission?: Yes (2) Hyperkalemia Is this a current diagnosis for this admission?: Yes (3) Malignant neoplasm of left colon Is this a current diagnosis for this admission?: Yes (4) Hyponatremia Is this a current diagnosis for this admission?: Yes
[2016-10-28] MEDS: HEPARIN SOD (PORCINE) 5,000 UNIT/ML 1 ML SYRINGE SUBCUT SCH ×3 (05:27→22:00)
[2016-10-28] MEDS: DEXTROSE 5%-WATER 1000 ML 1,000 ML IV PRN (06:04)
[2016-10-28] MEDS: DULOXETINE HCL 30 MG CAPSULE.DR PO SCH (09:49)
[2016-10-28] MEDS: DULOXETINE HCL 20 MG CAPSULE.DR PO SCH (09:49)
--- NOTE | 2016-10-28 13:18 | PDOC PROGRESS REPORT ---
Subjective Progress Note for:: 10/28/16 Subjective:: Patient's condition is very poor, she is not coherent, family is suggesting a feeding tube placement, I am not sure that it is reasonable or even safe at this point, respiration is sometime agonal. She has a poor prognosis Physical Exam Vital Signs: Temp Pulse Resp BP Pulse Ox 97.6 F 106 H 13 113/51 L 93 10/28/16 04:20 10/28/16 07:00 10/28/16 04:20 10/28/16 04:20 10/28/16 04:20 Intake & Output 10/27/16 10/28/16 10/29/16 06:59 06:59 06:59 Intake Total 1734 840 Output Total 0 Balance 1734 840 Weight 83.3 kg Respiratory exam: PRESENT: decreased breath sounds Cardiovascular exam: PRESENT: +S1, +S2 Results Laboratory Results: 10/26/16 05:45 10/26/16 05:45 10/17/16 00:46 Troponin I 0.024 Impressions: Abdomen/Pelvis CT 10/17/16 00:00 IMPRESSION: 1. Numerous mass lesions are identified in the lower lung purcell concerning for underlying metastasis. 2. R is altered attenuation seen throughout the liver concerning for possible liver metastasis though evaluation is somewhat limited on this study without IV contrast. 3. There there are soft tissue nodule seen along the left peritoneal surface as detailed above concerning for peritoneal implants/metastasis. There also appears to be masslike lesion seen in the abdomen adjacent to the stomach in the lesser sac region present adjacent surgical clips this concerning for possible mass. 4. Colostomy noted in the right upper quadrant. Langston's pouch noted. Chest X-Ray 10/18/16 00:00 IMPRESSION: INTERVAL PLACEMENT RIGHT SUBCLAVIAN VENOUS CATHETER TERMINATING DEEP WITHIN THE RIGHT ATRIUM. RECOMMEND PULLING BACK 5 6 CM. STABLE APPEARANCE OF BILATERAL LUNG MASSES AGAIN CONCERNING FOR METASTATIC DISEASE. Assessment & Plan - Diagnosis (1) Malignant neoplasm of left colon Is this a current diagnosis for this admission?: Yes (2) Acute kidney injury Is this a current diagnosis for this admission?: Yes (3) Hyperkalemia Is this a current diagnosis for this admission?: Yes (4) Hyponatremia Is this a current diagnosis for this admission?: Yes
[2016-10-28] MEDS ORDERED: FENTANYL 100 MCG/HR PATCH.TD72 ONE (19:10)
[2016-10-28] MEDS: FENTANYL 100 MCG/HR PATCH.TD72 TD SCH (19:53)
[2016-10-29] MEDS: DEXTROSE 5%-WATER 1000 ML 1,000 ML IV PRN (00:03)
[2016-10-29] MEDS: HEPARIN SOD (PORCINE) 5,000 UNIT/ML 1 ML SYRINGE SUBCUT SCH (05:48)
[2016-10-29] MEDS: DULOXETINE HCL 20 MG CAPSULE.DR PO SCH (10:15)
[2016-10-29] MEDS: DULOXETINE HCL 30 MG CAPSULE.DR PO SCH (10:15)
[2016-10-29 12:56] VITALS: BP 64/34
--- NOTE | 2016-10-29 13:19 | PDOC PROGRESS REPORT ---
Subjective Progress Note for:: 10/29/16 Subjective:: Patient spouse and assigned nursing staff reported episode of spontaneous nasal and mouth bleeding earlier this morning. There is associated dryness to both nasal and mouth mucosa. Her supplemental oxygen was subsequently changed from canula to face mask. She remain moribund. Patient remain DNR with overall poor prognosis. Physical Exam Vital Signs: Temp Pulse Resp BP Pulse Ox 97.5 F 105 H 11 L 91/45 L 91 L 10/29/16 03:52 10/29/16 07:00 10/29/16 03:52 10/29/16 03:52 10/29/16 03:52 Intake & Output 10/28/16 10/29/16 10/30/16 06:59 06:59 06:59 Intake Total 840 1680 Balance 840 1680 Weight 83.3 kg 89.8 kg General appearance: PRESENT: other - moribound and chronically ill looking Head exam: PRESENT: atraumatic, normocephalic Mouth exam: PRESENT: dry mucosa Respiratory exam: PRESENT: clear to auscultation barney, decreased breath sounds Cardiovascular exam: PRESENT: RRR. ABSENT: diastolic murmur, rubs, systolic murmur GI/Abdominal exam: PRESENT: normal bowel sounds, soft. ABSENT: distended, guarding, mass, organolmegaly, rebound, tenderness Extremities exam: PRESENT: pedal edema - bilaterally to below knee level Neurological exam: PRESENT: altered - to painful stimuli Skin exam: PRESENT: dry, warm Results Laboratory Results: 10/26/16 05:45 10/26/16 05:45 10/17/16 00:46 Troponin I 0.024 Impressions: Abdomen/Pelvis CT 10/17/16 00:00 IMPRESSION: 1. Numerous mass lesions are identified in the lower lung purcell concerning for underlying metastasis. 2. R is altered attenuation seen throughout the liver concerning for possible liver metastasis though evaluation is somewhat limited on this study without IV contrast. 3. There there are soft tissue nodule seen along the left peritoneal surface as detailed above concerning for peritoneal implants/metastasis. There also appears to be masslike lesion seen in the abdomen adjacent to the stomach in the lesser sac region present adjacent surgical clips this concerning for possible mass. 4. Colostomy noted in the right upper quadrant. Langston's pouch noted. Chest X-Ray 10/18/16 00:00 IMPRESSION: INTERVAL PLACEMENT RIGHT SUBCLAVIAN VENOUS CATHETER TERMINATING DEEP WITHIN THE RIGHT ATRIUM. RECOMMEND PULLING BACK 5 6 CM. STABLE APPEARANCE OF BILATERAL LUNG MASSES AGAIN CONCERNING FOR METASTATIC DISEASE. Assessment & Plan - Diagnosis (1) Malignant neoplasm of left colon Is this a current diagnosis for this admission?: YesPlan: Continue supportive conservative management. Patient remain DNR. (2) Multisystem organ failure Is this a current diagnosis for this admission?: YesPlan: Continue supportive conservative management. Patient remain DNR. (3) Bleeding diathesis Is this a current diagnosis for this admission?: NoPlan: This is probably related to her metastatic stage IV colon cancer and associated thrombocytopenia. Currently no active bleeding. In view of patient's end stage condition spouse at bedside did agree to conservative management. (4) Thrombocytopenia Is this a current diagnosis for this admission?: NoPlan: This may be related to her stage IV metastatic colon cancer. Contribution to her incident nasal and mouth bleeding probable. Continue conservative management. - Time Time Spent with patient: 25-34 minutes Medications reviewed and adjusted accordingly: Yes Anticipated discharge: Hospice Within: Other - Inpatient Certification Medical Necessity: Need Close Monitoring Due to Risk of Patient Decompensation, Risk of Complication if Not Cared For in Hospital Post Hospital Care: D/C Stock Unloader Documentation - Plan Summary Plan Summary: Continue supportive conservative management. Patient remain DNR.
--- NOTE | 2016-10-31 20:12 | Death Summary ---
Summary Date : 10/29/16 Time of :: 13:35 Autopsy: No Resuscitation Status: Do Not Resuscitate - Final Diagnosis (1) Malignant neoplasm of left colon Is this a current diagnosis for this admission?: Yes (2) Acute kidney injury Is this a current diagnosis for this admission?: Yes (3) Hyperkalemia Is this a current diagnosis for this admission?: Yes (4) Hyponatremia Is this a current diagnosis for this admission?: Yes Hospital Course:: Patient with stage IV colon cancer with lung and liver metastases, she was admitted because of acute kidney injury, hyponatremia, anorexia, failure to thrive. She was in the group home for rehabilitation,she was transferred from the group home to the hospital for treatment. patient was seen by oncology, surgery. She had a dose of chemotherapy in the hospital. She was treated with IV fluid, patient's condition was extremely poor Throughout hospital stay. She did not eat food or drink fluids, family suggested tube feed, consultation was requested from surgery was felt that she is a poor candidate for any surgical intervention. She has very advanced colon cancer with widespread metastases involving both lung purcell and the liver. She was made a DNR status with the understanding of the family, hospice and palliative care was suggested to the family but family did not buy into that option patient ultimately in the hospital on 10/29/2016.
== END 2016-10-29 14:34 | DRG 683 ==
LOC: ER 15:23 → EH 22:40 → UNDOADMIN 23:13 → 4N 10-17 02:20
PROVIDERS: ADMIT Internal Medicine; ATTEND Internal Medicine
PROC: 02HV33Z Insertion of Infusion Device into Superior Vena Cava, Percutaneous Approach (ICD-10-PCS; principal; 2016-10-18)
DX: N17.9 Acute kidney failure, unspecified (principal); C18.6 Malignant neoplasm of descending colon; C78.02 Secondary malignant neoplasm of left lung; C78.01 Secondary malignant neoplasm of right lung; C78.7 Secondary malignant neoplasm of liver and intrahepatic bile duct; C78.6 Secondary malignant neoplasm of retroperitoneum and peritoneum; E87.1 Hypo-osmolality and hyponatremia; E87.5 Hyperkalemia; F32.9 Major depressive disorder, single episode, unspecified; E86.0 Dehydration; E11.9 Type 2 diabetes mellitus without complications; I10 Essential (primary) hypertension; I87.2 Venous insufficiency (chronic) (peripheral); D69.59 Other secondary thrombocytopenia; R62.7 Adult failure to thrive; R63.0 Anorexia; R63.3 Feeding difficulties; Z66 Do not resuscitate; Z68.32 Body mass index [BMI] 32.0-32.9, adult; Z93.3 Colostomy status; Z90.49 Acquired absence of other specified parts of digestive tract; Z79.899 Other long term (current) drug therapy
CPT/HCPCS: 36415; 71010; 74176; 80048; 80053; 81001; 82378; 82550; 82553; 84439; 84443; 84484; 85025; 85610; 86850; 86900; 86901; 87040; 87086; 96361; 96367; 96374; 96375; 96409; 96413; 96415; 96416; 96417; 99285; C1751; J0610; J0640; J1100; J1200; J1644; J1815; J2270; J2405; J3490; J7030; J7040; J7060; J9190; J9263